=== PATIENT | female | born 1990 | race Caucasian/White ===

== ENCOUNTER 2021-04-01 18:29 | Emergency (ER) | payer OTHER, SELFPAY ==
[2021-04-01 19:48] VITALS: BP 130/81; PULSE 101; RESP 18; TEMP 37; O2SAT 100; BMI 28.5
--- NOTE | 2021-04-01 20:20 | HMH.EDUTC ---
[facility] Clinical Impression: Viral upper respiratory illness Disposition: Home, Self-Care Condition on Discharge: Good Instructions: DI for Viral Upper Respiratory Infection -- Adult Additional Instructions: *Monitor Temp, Over the counter Motrin or Tylenol as directed/as needed Tylenol every 4 hours and Motrin every 6 hours (as long as your family doctor has told you that you can take it) for fever or pain. and straight to ER if unable to lower temp less than 101.0 after medication given *Warm salt water gargles may help to soothe the throat *Throat Lozenges *Warm fluids like tea with honey may help to soothe the throat *Sleep elevated *Humidifier/Vaporizer Your throat swab was sent for culture. Those results are typically sent to your primary care. Be sure to follow up in 2-3 days with your family doctor/primary care physician if no improvement so they can review those result and treat if necessary. If you don?t have a primary care doctor, I recommend you get one but in the mean time, you will have to return to a walk in clinic Follow up IMMEDIATELY for new or worsening symptoms or no Noticeable improvement over the next 48-72 hours. 911 for difficulty breathing or swallowing You were tested for today for COVID19 your test result should be back in the next 24-48 hours, you may call to the [facility] to see if your test results are back in the next 48 hours [phone] [facility] hours are 9am-9pm You was given a handout with instructions for Self Quarantine and Self isolation for while you wait on test results and what to do if they are positive If you are positive the Health Dept will be contacting you also Make sure to take your Vitamins Vit. C Vit D and Zinc if you can take them Referrals: Provider,Referral, [Primary Care Provider] - Forms: Work/School Release Time of Disposition: 20:37 Medical Decision Making - Melo Inquiry Pt receiving controlled substance: No Melo was queried for this patient: No Vital Signs: 04/01/21 19:48 Temperature 98.6 F Temperature Source Oral Pulse Rate [Left Radial] 101 H Respiratory Rate 18 Blood Pressure [Right Arm] 130/81 Blood Pressure Mean [Right Arm] 97 Blood Pressure Source [Right Arm] Automatic Cuff Blood Pressure Position [Right Arm] Sitting 02 Sat by Pulse Oximetry 100 Oxygen Delivery Method Room Air - Lab Data Lab results reviewed: Yes: I reviewed the patient's lab results. Lab Results 04/01/21 20:25: Strep Scn Rapid Clinic Negative Orders (Tests/Meds): ORDERS Category Date Time Status Covid-19 Nasal PCR ([facility]) Routine Lab 04/01/21 19:43 Received Strep Screen Confirmation Stat Micro 04/01/21 20:25 Received [facility] UTC HPI - General Stated complaint: sore throt, cough, v/d, soa Time Seen by Provider: 04/01/21 20:20 Mode of Arrival: Ambulatory Source of Information: Patient Limitations: No Limitations Description of Symptoms (Recalled from Triage Doc. by RN): c/o cough, congestion, soa, fever, vomiting with coughing since Wednesday HEENT Symptoms (Recalled from RN notes): Yes Resp Symptoms (Recalled from RN notes): Yes Skin Symptoms (Recalled from RN notes): No MS Symptoms (Recalled from RN notes): No Functional Status (Recalled from RN notes): na - History of Present Illness Provider Complaint: Patient been having cough, fever, sore throat, body aches, sinus pressure and drainage along with nausea for the last 2-3 days states that symptoms have continued worse Has not tried anything OTC other than tylenol with minimal improvment of fever so she came in to get checked Patient states that she is 26wks OB - Related Data Home Medications Medication Instructions Recorded Confirmed No Known Home Medications 04/01/21 04/01/21 Allergies Allergy/AdvReac Type Severity Reaction Status Date / Time No Known Allergies Allergy Verified 04/01/21 19:51 - Worker's Comp Is this a Worker's Comp case?: No [facility] History - Hepatitis A Scr
[2021-04-01 20:35] LABS: UTC Strep Screen (Rapid) Negative (Negative)
[2021-04-01 20:44] VITALS: BP 130/81; PULSE 101; RESP 18; TEMP 37; O2SAT 100
== END 2021-04-01 20:45 | disposition home or self-care (01) ==
PROVIDERS: Emergency Provider Nurse Practitioner
DX: J06.9 Acute upper respiratory infection, unspecified (principal); Z20.822 Contact with and (suspected) exposure to COVID-19
CPT/HCPCS: 87880; 99202; C9803; G0463; U0003; U0005

== ENCOUNTER 2021-06-07 08:54 | Outpatient (CLI) | payer OTHER, SELFPAY ==
[2021-06-07 09:09] VITALS: BMI 30.8
[2021-06-07 09:24] LABS: Microscopic, Urine URINE MICROSCOPIC (MICROSCOPIC)
[2021-06-07 09:27] LABS: Appearance,Urine CLOUDY (Clear); Bilirubin,Urine Negative (Negative); Blood, Urine 2+ (Negative); Color,Urine YELLOW (Yellow); Glucose,Urine (UA) TRACE (Negative); Ketones,Urine Negative (Negative); Leukocyte Esterase,Urine Negative (Negative); Nitrate,Urine Negative (Negative); Protein,Urine 2+ (Negative); Urobilinogen,Urine 0.2 EU/dl (0.2)
[2021-06-07 09:37] VITALS: BP 108/62; PULSE 110; RESP 20; TEMP 37.1; O2SAT 97; BMI 30.8
[2021-06-07 09:41] LABS: Barbiturates Screen,Urine Negative ng/ml (<200)
[2021-06-07 09:42] LABS: Amphetamine/Metha Screen,Urine Negative ng/ml (<1000); Benzodiazepines Screen,Urine Negative ng/ml (<200)
[2021-06-07 09:43] LABS: Cannabinoid Screen,Urine Negative ng/ml (<50)
[2021-06-07 09:44] LABS: Cocaine Screen,Urine Negative ng/ml (<300); Methadone Screen,Urine Negative ng/ml (<300)
[2021-06-07 09:45] LABS: Coronavirus 19, PCR Not Detected (NotDetected); Influenza A, PCR Not Detected (NotDetected); Influenza B, PCR Not Detected (NotDetected)
[2021-06-07 09:45] LABS: Opiate Screen,Urine Negative ng/ml (<300); Phencyclidine Screen,Urine Negative ng/ml (<25)
[2021-06-07 09:49] LABS: Bacteria,Urine 3+ /lpf; WBC,Urine Occasional #/hpf (0-3)
[2021-06-07 09:52] LABS: Fetal Membrane Rupture (Rapid) Positive (Negative)
--- NOTE | 2021-06-07 11:23 | HMH.HPDC ---
General - General Admission date:: 06/07/21 Discharge date: 06/07/21 *Admission Date: 06/07/21 *Chief complaint: Ruptured membranes, 34 weeks gestational age, grand multiparity *History of present illness: She is a 31-year-old 9 para 8 who is 34 and 1 weeks gestational age. She has been followed in [place] but has only had 3 visits. She did have an ultrasound that confirmed her dates as July 18, 2021. She spontaneously ruptured her membranes at about 730 this morning. Since she is only 34 weeks gestational age we are sending her to by ambulance. She has been accepted in care by Dr. Jhon Zazueta. She has received 1 dose of steroids as well as ampicillin for her GBS prophylaxis. She is not luis. Her cervix was 2 cm dilated and 50% effaced. An ultrasound confirmed that she was in the cephalic presentation. We have recently been informed that there are no beds at and it will be about 6 hours before we can transfer her. We will continue with close observation. She will be transferred by ambulance as soon as a bed is available. [facility] History I have reviewed the patient's past medical history: Yes *Have you ever received a pneumonia vaccine?: No *Have you received a flu vaccine this season?: No Other Surgeries: No: - *Social History Smoking Status: Current every day smoker # Packs/Day (cigarettes): 20 #Yrs smoked (if former smoker): 15 Alcohol Intake: never Substance Use Type: denies use *Occupational Status:: unemployed *Travel in the last 8 weeks: None Family Hx:: No significant family history Para: 8 Review of Systems - Review of Systems Review of systems:: pertinent systems reviewed and negative unless documented below Exam Vital signs and Labs for Last 24 Hours: Temp Pulse Resp BP Pulse Ox 98.7 F 110 H 20 108/62 L 97 06/07/21 09:37 06/07/21 09:37 06/07/21 09:37 06/07/21 09:37 06/07/21 09:37 Laboratory Results - last 24 hr 06/07/21 09:06: Urine Color Yellow, Urine Appearance Cloudy, Urine pH 8.0, Ur Specific Hollis 1.020, Urine Protein 2+, Urine Glucose (UA) Trace, Urine Ketones Negative, Urine Blood 2+, Urine Nitrate Negative, Urine Bilirubin Negative, Urine Urobilinogen 0.2, Ur Leukocyte Esterase Negative, Urine RBC 3-5, Urine WBC Occasional, Ur Squamous Epith Cells 5-10, Urine Bacteria 3+ 06/07/21 09:06: Urine Opiates Screen Negative, Urine Methadone Screen Negative, Ur Barbituates Screen Negative, Ur Phencyclidine Scrn Negative, Ur Amphetamines Screen Negative, U Benzodiazepines Scrn Negative, Urine Cocaine Screen Negative, U Marijuana (THC) Screen Negative 06/07/21 09:22: Membrane Rupture Positive A 06/07/21 09:30: SARS-CoV-2 (PCR) Not detected, Influenza A Untype (PCR) Not detected, Influenza Type B (PCR) Not detected I & O for Last 24 hours: Intake & Output 06/04/21 06/05/21 06/06/21 06/07/21 11:59 11:59 11:59 11:59 Weight 168 lb 6.4 oz - Constitutional no acute distress - *Routine HEENT Exam Head: Present: normocephalic Eye: Present: EOMI, PERRL ENT: Present: mucous membranes moist - *Routine Neck Exam Present: supple, full ROM - *Routine Respiratory Exam Absent: accessory muscle use (good air entry bilaterally), wheezes, crackles - *Routine Cardiovascular Exam Present: RRR. Absent: murmur - *Routine Abdominal Exam Present: soft, normoactive bowel sounds. Absent: tenderness, rebound, guarding, mass - *Routine Rectal Exam Rectal:: deferred - *Routine Genitalia Exam Genitalia:: normal female - *Routine Extremities Exam Present: full ROM. Absent: cyanosis, edema, calf tenderness - *Routine Skin Exam Present: intact (good color) - *Routine Neurological Exam Present: alert, oriented X3 - Routine Psychiatric Exam Present: normal affect - Detailed Rectal Exam Patient deferred: visual exam, digital exam - Detailed Exam Patient deferred: external exam, groin exam, perineal exam [facility]
[2021-06-07 12:16] LABS: Basophils # 0.2 K/mm3 (0-0.2); Basophils % 1.1 % (0.1-2.0); Eosinophils # 0.1 K/mm3 (0.0-0.4); Hematocrit 30.8 % (37.0-47.0); Hemoglobin 9.7 g/dL (12.2-16.2); Lymphocytes # 2.5 K/mm3 (0.7-4.5); Lymphocytes % 17.3 % (10-50); Mean Corpuscular HGB Conc 31.5 g/dL (31.8-35.4); Mean Corpuscular Hemoglobin 27.6 pg (27.0-31.2); Mean Corpuscular Volume 87.7 fl (81-99); Mean Platelet Volume 9.1 fl (7.4-10.4); Monocytes # 0.7 K/mm3 (0.1-1.0); Monocytes % 4.5 % (1.7-9.3); Neutrophils # 11.1 K/mm3 (1.8-7.8); Neutrophils % 76.2 % (37.0-80.0); Platelet Count 236 K/mm3 (142-424); Red Blood Count 3.51 M/mm3 (4.20-5.40); Red Cell Distribution Width 14.5 % (11.5-17.5); White Blood Count 14.6 K/mm3 (4.8-10.8)
== END 2021-06-07 18:16 | disposition short-term general hospital (02) ==
LOC: OBOUT 08:56 → OB 08:57
PROVIDERS: Visit Provider Nurse Practitioner Obstetrics & Gynecology
DX: O42.90 Premature rupture of membranes, unspecified as to length of time between rupture and onset of labor, unspecified weeks of gestation; Z3A.34 34 weeks gestation of pregnancy
CPT/HCPCS: 59025; 80305; 81001; 84112; 85025; 86850; 87086; 94761; 96365; 96367; 96372; C9803; G0283; G0463; J0290; U0003; U0005

== ENCOUNTER 2021-09-15 20:10 | Emergency (ER) | payer OTHER, SELFPAY ==
[2021-09-15 20:21] VITALS: BP 0/0; PULSE 0; RESP 0; TEMP -17.7; TEMP 0; O2SAT 0
== END 2021-09-15 20:29 | disposition left against medical advice (07) ==
LOC: ER 20:23
PROVIDERS: Emergency Provider Emergency Medicine
DX: Z53.21 Procedure and treatment not carried out due to patient leaving prior to being seen by health care provider (principal)
CPT/HCPCS: 99211

== ENCOUNTER → 2021-09-18 11:11 | Outpatient (CLI) | payer OTHER, SELFPAY ==
[2021-09-18 13:20] LABS: HCG,Quantitative 12301 mIU/ml (0-5.42)
== END ==
PROVIDERS: Visit Provider Nurse Practitioner Obstetrics & Gynecology
DX: Z34.90 Encounter for supervision of normal pregnancy, unspecified, unspecified trimester (principal)
CPT/HCPCS: 36415; 84702

== ENCOUNTER → 2021-11-04 08:18 | Outpatient (CLI) | payer OTHER, SELFPAY ==
[2021-11-04 09:13] LABS: Basophils # 0.1 K/mm3 (0-0.2); Basophils % 0.6 % (0.1-2.0); Eosinophils # 0.1 K/mm3 (0.0-0.4); Eosinophils % 0.8 % (0.1-12.0); Hematocrit 36.3 % (37.0-47.0); Hemoglobin 12.2 g/dL (12.2-16.2); Lymphocytes # 2.3 K/mm3 (0.7-4.5); Lymphocytes % 22.3 % (10-50); Mean Corpuscular HGB Conc 33.6 g/dL (31.8-35.4); Mean Corpuscular Hemoglobin 28.5 pg (27.0-31.2); Mean Corpuscular Volume 84.6 fl (81-99); Mean Platelet Volume 8.5 fl (7.4-10.4); Monocytes # 0.4 K/mm3 (0.1-1.0); Monocytes % 4.3 % (1.7-9.3); Neutrophils # 7.2 K/mm3 (1.8-7.8); Neutrophils % 71.9 % (37.0-80.0); Platelet Count 303 K/mm3 (142-424); Red Blood Count 4.29 M/mm3 (4.20-5.40); Red Cell Distribution Width 15.6 % (11.5-17.5); White Blood Count 10.1 K/mm3 (4.8-10.8)
[2021-11-05 10:09] LABS: HIV Screen 4th Generation wRfx Non Reactive (Non Reactive)
[2021-11-05 10:11] LABS: Rubella Antibodies, IgG 2.04 index (Immune >0.99)
[2021-11-05 12:04] LABS: Hepatitis B Surface Antigen Negative (Negative); Hepatitis C Antibody <0.1 s/co ratio (0.0-0.9)
[2021-11-05 12:11] LABS: Rapid Plasma Reagin Ab Titer Non Reactive (NonRea<1:1)
== END ==
PROVIDERS: Visit Provider Obstetrics & Gynecology
DX: Z34.90 Encounter for supervision of normal pregnancy, unspecified, unspecified trimester (principal)
CPT/HCPCS: 36415; 85025; 86592; 86703; 86762; 86850; 87340; 87380; G0432

== ENCOUNTER → 2021-11-05 14:34 | Outpatient (CLI) | payer OTHER, SELFPAY | PROVIDERS: Visit Provider Obstetrics & Gynecology | DX: Z31.430 Encounter of female for testing for genetic disease carrier status for procreative management (principal); Z36.0 Encounter for antenatal screening for chromosomal anomalies; O28.3 Abnormal ultrasonic finding on antenatal screening of mother | CPT/HCPCS: 36415 ==

== ENCOUNTER → 2022-01-07 13:59 | Outpatient (CLI) | payer OTHER, SELFPAY ==
--- NOTE | 2022-01-07 13:59 | US_ITS ---
FINAL REPORT CLINICAL HISTORY: OB complete FINDINGS: There is a single live intrauterine gestation. Presentation is cephalic. Placenta is anterior, grade 1. movement is noted. Heart rate is identified but not recorded. Three-vessel cord with satisfactory umbilical cord insertion. Four-chamber heart is noted. ABDOMEN: Both kidneys are unremarkable. Stomach is unremarkable. SPINE: No anomalies identified. AMNIOTIC FLUID: Appropriate amount. MEASUREMENTS: ULTRASOUND AGE: 21 weeks 1 day. GESTATION AGE: 21 weeks 0 days. ESTIMATED WEIGHT: 392 g GROWTH PERCENTILE: 37 % BPD: 5.07 corresponding to 21 weeks 3 days. OFD: 6.32 corresponding to 21 weeks 1 day. HC: 18.00 cm corresponding to 20 weeks 4 days. AC: 16.13 cm corresponding to 21 weeks 2 days. FL: 3.44 cm corresponding to 20 weeks 6 days. CEREBELLUM: 2.09 cm corresponding to 21 weeks 1 day. HUMERUS: 3.47 cm corresponding to 22 weeks 0 days. HC/AC: 1.12 CI: 80% FL/BPD: 68% FL/AC: 21% IMPRESSION: Single living IUP with an ultrasound age of 21 weeks 1 day. Reviewed, Interpreted and Dictated by Ed Wilde III, MD Transcribed by Kim Beauchamp Authenticated and . [facility]
== END ==
PROVIDERS: PCP Obstetrics & Gynecology; Visit Provider Obstetrics & Gynecology
DX: Z34.90 Encounter for supervision of normal pregnancy, unspecified, unspecified trimester (principal)
CPT/HCPCS: 76811

== ENCOUNTER → 2022-02-24 12:30 | Outpatient (CLI) | payer OTHER, SELFPAY ==
[2022-02-24 12:48] LABS: Basophils # 0.1 K/mm3 (0-0.2); Eosinophils # 0.2 K/mm3 (0.0-0.4); Eosinophils % 1.4 % (0.1-12.0); Hematocrit 33.6 % (37.0-47.0); Hemoglobin 11.2 g/dL (12.2-16.2); Lymphocytes # 2.3 K/mm3 (0.7-4.5); Lymphocytes % 21.3 % (10-50); Mean Corpuscular HGB Conc 33.4 g/dL (31.8-35.4); Mean Corpuscular Hemoglobin 29.7 pg (27.0-31.2); Mean Corpuscular Volume 88.9 fl (81-99); Mean Platelet Volume 8.8 fl (7.4-10.4); Monocytes # 0.4 K/mm3 (0.1-1.0); Monocytes % 3.5 % (1.7-9.3); Neutrophils # 7.8 K/mm3 (1.8-7.8); Neutrophils % 72.8 % (37.0-80.0); Platelet Count 214 K/mm3 (142-424); Red Blood Count 3.77 M/mm3 (4.20-5.40); Red Cell Distribution Width 14.8 % (11.5-17.5); White Blood Count 10.8 K/mm3 (4.8-10.8)
[2022-02-24 13:06] LABS: Glucose,Fasting 123 mg/dl (74-100)
[2022-02-24 14:28] LABS: Glucose 1 Hour 155 mg/dL (74-100)
== END ==
PROVIDERS: Visit Provider Obstetrics & Gynecology
DX: Z34.90 Encounter for supervision of normal pregnancy, unspecified, unspecified trimester (principal)
CPT/HCPCS: 36415; 82951; 85025

== ENCOUNTER → 2022-03-09 08:49 | Outpatient (CLI) | payer OTHER, SELFPAY ==
[2022-03-09 09:36] LABS: Glucose,Fasting 85 mg/dl (74-100)
[2022-03-09 10:56] LABS: Glucose 1 Hour 98 mg/dL (74-100)
[2022-03-09 12:03] LABS: Glucose 2 Hour 97 mg/dL (74-100)
[2022-03-09 12:59] LABS: Glucose 3 Hour 102 mg/dL (74-100)
== END ==
PROVIDERS: Visit Provider Obstetrics & Gynecology
DX: R73.09 Other abnormal glucose (principal)
CPT/HCPCS: 36415; 82951

== ENCOUNTER → 2022-04-10 13:07 | Outpatient (CLI) | payer OTHER, SELFPAY ==
--- NOTE | 2022-04-10 13:07 | US_ITS ---
FINAL REPORT CLINICAL HISTORY: lga FINDINGS: TRANSABDOMINAL ULTRASOUND There is a single live intrauterine gestation. Presentation is cephalic. The cervix is closed and measures 2.3 cm cm. Placenta is anterior and grade 2. Cardiac activity is confirmed at 121 bpm. Fetus is active. CHRISTINA: 16.6 cm cm MEASUREMENTS: GESTATION AGE: 34 weeks 2 days. BREATHIN/2 MOVEMENT: 2/2 TONE: 2/2 FLUID VOLUME: 2/2 BPP SCORE: 8/8 IMPRESSION: Single living IUP with an ultrasound age of 34 weeks 2 days. BPP SCORE: 8/8 CHRISTINA: 16.6 cm Reviewed, Interpreted and Dictated by Rich Mccain MD Transcribed by Mehdi Garcia Authenticated and [facility]
== END ==
PROVIDERS: PCP Obstetrics & Gynecology; Visit Provider Obstetrics & Gynecology
DX: O36.60X0 Maternal care for excessive fetal growth, unspecified trimester, not applicable or unspecified (principal)
CPT/HCPCS: 76819

== ENCOUNTER 2022-04-19 17:50 | Inpatient (IN) | payer OTHER, SELFPAY ==
--- NOTE | 2022-04-19 18:34 | EXP.HP ---
History of Present Illness *Admission Date: 04/19/22 *Reason for visit:: Active labor at 35+4 weeks gestational age. Stillbirth *History of present illness: She is a 32-year-old 10 para 8 aborta 1 who started having contractions this morning. She is 35-1/2 weeks gestational age. She came in and was found to be fully dilated with bulging bag of membranes. She subsequently ruptured her membranes and there was copious brown amniotic fluid. She spontaneously delivered a stillborn female child at 6:15 PM in the evening of April 19, 2022. Apgars were 0 at 105 minutes. The baby's cord was clotted and the skin had peeled from the lower abdomen and chest. This likely indicates that the baby had been for a day or 2. Baby appeared to be normally formed for a 35-week gestational age infant. She has a history of twins in her last and at 20 weeks was discovered that one of the twins was stillborn. She subsequently went on to deliver the second twin at 34 weeks. Unfortunately he of SIDS about 3 weeks of age. She has had good care throughout this . An ultrasound on April 10 showed a normal size infant with normal fluid and biopsy profile of 8 out of 8. [facility] Medical History Infection of tooth Social History Smoking Status: Current every day smoker alcohol intake: never substance use type: marijuana current occupational status: unemployed Travel in the last 8 weeks: None Review of Systems Review of Systems Review of systems:: pertinent systems reviewed and negative unless documented below Meds Home Medications and Allergies Home Medications Medication Instructions Recorded Confirmed Type multivitamin no.47-iron fum 27 1 cap PO DAILY #30 caps 10/01/21 03/26/22 Rx mg-folate no.1 1 mg-dha 300 mg capsule (PNV-DHA) ferrous sulfate 325 mg (65 mg 325 mg PO DAILY #90 tabs 03/04/22 03/26/22 Rx iron) tablet (Iron (ferrous sulfate)) New Prescriptions to Start Prescriptions: Allergies Allergy/AdvReac Type Severity Reaction Status Date / Time No Known Allergies Allergy Verified 04/10/22 11:24 Exam Constitutional Constitutional: no acute distress *Routine HEENT Exam Head: Present normocephalic Eye: Present EOMI and PERRL ENT: Present mucous membranes moist *Routine Neck Exam Neck: Present supple; Absent lymphadenopathy *Routine Respiratory Exam Respiratory: Present CTA bilaterally *Routine Cardiovascular Exam Cardiovascular: Present RRR *Routine Abdominal Exam Abdominal: Present soft and normoactive bowel sounds; Absent tenderness *Routine Rectal Exam Rectal:: deferred *Routine Genitalia Exam Genitalia:: deferred *Routine Extremities Exam Extremities: Absent cyanosis, clubbing or edema *Routine Skin Exam Skin: Present warm; Absent rash *Routine Neurological Exam Neurological: Present alert and oriented X3 Assessment and Plan *Assessment and plan (1) History of delivery: Status: Acute Category: Medical Code(s): Z87.51 - Personal history of pre-term labor (2) Borderline personality disorder: Status: Acute Category: Medical Code(s): F60.3 - Borderline personality disorder (3) Grand multipara: Status: Acute Category: Medical Code(s): Z64.1 - Problems related to multiparity (4) delivery: Status: Acute Category: Medical Code(s): O60.10X0 - labor with delivery, unspecified trimester, not applicable or unspecified (5) History of stillbirth: Status: Acute Category: Medical Code(s): Z87.59 - Personal history of other complications of , childbirth and the puerperium (6) Stillbirth with normal delivery: Status: Acute Category: Medical Code(s): Z37.1 - Single stillbirth Plan She arri
--- NOTE | 2022-04-19 18:42 | EXP.DN ---
Delivery Note Delivery Date:: 04/19/22 Delivery Time:: 18:15 Anesthesia Type: None Was labor medically induced?: No Induction method: none Gestational age (weeks): 35 delivered prior to 39 weeks?: Yes Justification for early elective delivery:: Active Labor Gender: Female at 1 minute: 0 at 5 minutes: 0 AF:: Clear but brown-colored Delivery Procedure:: She is a 32-year-old 10 para 8 aborta 1 who arrived in active labor at 35 and 4 weeks gestational age. She was found to be fully dilated. She subsequently ruptured her membranes and there was copious brown stained fluid. She delivered spontaneously a stillborn female child at 6:15 PM in the evening of April 19, 2022. The baby appeared to be a normal formed female child at the appropriate gestational age. The skin on the baby's belly and abdomen was peeling indicating that was probably a couple of days before the delivery. She received IV oxytocin using gentle traction on the cord and countertraction the fundus the placenta easily delivered intact. It had a normal three-vessel cord. The cord itself was quite dark burgundy in color with clotted blood. There were no perineal or vaginal lacerations. Placental Delivery Description: Spontaneous
--- NOTE | 2022-04-19 19:01 | EXP.DC.SUM ---
General Admission date:: 04/19/22 Discharge date: 04/19/22 HPI HPI HPI: She is a 32-year-old 10 para 8 aborta 1 who started having contractions this morning. She is 35-1/2 weeks gestational age. She came in and was found to be fully dilated with bulging bag of membranes. She subsequently ruptured her membranes and there was copious brown amniotic fluid. She spontaneously delivered a stillborn female child at 6:15 PM in the evening of April 19, 2022. Apgars were 0 at 105 minutes. The baby's cord was clotted and the skin had peeled from the lower abdomen and chest. This likely indicates that the baby had been for a day or 2. Baby appeared to be normally formed for a 35-week gestational age infant. She has a history of twins in her last and at 20 weeks was discovered that one of the twins was stillborn. She subsequently went on to deliver the second twin at 34 weeks. Unfortunately he of SIDS about 3 weeks of age. She has had good care throughout this . An ultrasound on April 10 showed a normal size infant with normal fluid and biopsy profile of 8 out of 8. Hospital Course Hospital Course Hospital Course: She arrived in active labor and was found to be fully dilated at 35 weeks and 4 days. She spontaneously ruptured her membranes and there was brown stained amniotic fluid. She delivered a stillborn female child at 6:15 in the evening of April 19, 2022. She requested to go home shortly after her delivery and we are discharging her home to follow-up with Dr. Goncalves in approximately 1 week's time. She will continue with her vitamins and iron. Her condition on discharge is stable Exam Constitutional Constitutional: no acute distress *Routine Respiratory Exam Respiratory: Present normal respiratory effort *Routine Abdominal Exam Abdominal: Present soft DS: Diagnosis Discharge Diagnosis (1) History of delivery: Status: Acute (2) Borderline personality disorder: Status: Acute (3) Grand multipara: Status: Acute (4) delivery: Status: Acute (5) History of stillbirth: Status: Acute (6) Stillbirth with normal delivery: Status: Acute Meds Home Medications and Allergies Home Medications Medication Instructions Recorded Confirmed Type multivitamin no.47-iron fum 27 1 cap PO DAILY #30 caps 10/01/21 03/26/22 Rx mg-folate no.1 1 mg-dha 300 mg capsule (PNV-DHA) ferrous sulfate 325 mg (65 mg 325 mg PO DAILY #90 tabs 03/04/22 03/26/22 Rx iron) tablet (Iron (ferrous sulfate)) New Prescriptions to Start Prescriptions: Allergies Allergy/AdvReac Type Severity Reaction Status Date / Time No Known Allergies Allergy Verified 04/10/22 11:24 Discharge Plan Disposition Patient Disposition: Home, Self-Care Discharge Order Discharge Orders: Discharge Order (Routine); Ordered 04/19/22 Ordered By: Edis Valdovinos Follow up Plan Prescriptions/Medication Reconciliation: Continued PNV-DHA 27 mg iron-1 mg -300 mg capsule 1 cap PO DAILY Qty: 30 10RF ferrous sulfate [Iron (ferrous sulfate)] 325 mg (65 mg iron) tablet 325 mg PO DAILY Qty: 90 0RF Problem Reconciliation Problems Reviewed?: Yes Patient Discharge Instructions ACTIVITY: No heavy lifting DIET: continue same diet Providers Primary Care Provider: Edis Valdovinos Admit Provider: Edis Valdovinos Attending Provider: Edis Valdovinos
[2022-04-19 19:24] VITALS: BMI 31.8
[2022-04-19 20:23] LABS: Basophils # 0.1 K/mm3 (0-0.2); Basophils % 0.4 % (0.1-2.0); Eosinophils # 0.1 K/mm3 (0.0-0.4); Eosinophils % 0.9 % (0.1-12.0); Hematocrit 34.2 % (37.0-47.0); Hemoglobin 11.2 g/dL (12.2-16.2); Lymphocytes % 20.2 % (10-50); Mean Corpuscular HGB Conc 32.8 g/dL (31.8-35.4); Mean Corpuscular Volume 85.2 fl (81-99); Monocytes # 0.8 K/mm3 (0.1-1.0); Monocytes % 5.6 % (1.7-9.3); Neutrophils # 10.9 K/mm3 (1.8-7.8); Neutrophils % 72.9 % (37.0-80.0); Platelet Count 275 K/mm3 (142-424); Red Blood Count 4.01 M/mm3 (4.20-5.40); Red Cell Distribution Width 14.4 % (11.5-17.5); White Blood Count 14.9 K/mm3 (4.8-10.8)
[2022-04-19 20:24] LABS: Alanine Aminotransferase 19 U/L (12-78); Albumin Level 3.9 g/dl (3.5-5.0); Albumin/Globulin Ratio 1.1 (1.1-1.8); Alkaline Phosphatase 199 U/L (38-126); Anion Gap 17.3 mEq/L (5-15); Aspartate Amino Transferase 29 U/L (14-36); Bilirubin,Total 0.2 mg/dl (0.2-1.3); Blood Urea Nitrogen 7 mg/dl (7-17); Calcium 9.9 mg/dl (8.4-10.2); Carbon Dioxide 23 mmol/L (22.0-30.0); Chloride 99 mmol/L (98-107); Creatinine Clearance Estimated 201 mL/min (50-200); Estimated Glomerular Filt Rate 143 ml/min (>60); GFR (African American) 173 ML/MIN (>60); Globulin 3.5 g/dL (1.3-3.2); Glucose 102 mg/dl (74-100); Potassium 3.3 mmoL/L (3.5-5.1); Sodium 136 mmol/L (136-145); Total Protein,Serum 7.4 g/dl (6.3-8.2)
[2022-04-21 08:19] LABS: Cytomegalovirus (CMV) Ab, IgM 43.4 AU/mL (0.0-29.9)
[2022-04-22 18:06] LABS: Parvovirus B19, IgG 6.3 index (0.0-0.8); Parvovirus B19, IgM 0.2 index (0.0-0.8)
== END 2022-04-19 21:29 | disposition home or self-care (01) | DRG 805 ==
PROVIDERS: Admitting Provider Nurse Practitioner Obstetrics & Gynecology; PCP Nurse Practitioner Obstetrics & Gynecology; Visit Provider Nurse Practitioner Obstetrics & Gynecology
DX: O36.4XX0 Maternal care for intrauterine death, not applicable or unspecified (principal); O60.14X0 Preterm labor third trimester with preterm delivery third trimester, not applicable or unspecified; Z37.1 Single stillbirth; Z3A.35 35 weeks gestation of pregnancy; O99.334 Smoking (tobacco) complicating childbirth
CPT/HCPCS: 59409; 80053; 85025; 86644; 86645; 86747; 87070; 87077; 87186; 87205; 88307

== ENCOUNTER 2022-08-24 14:13 | Emergency (ER) | payer OTHER, SELFPAY ==
--- NOTE | 2022-08-24 14:26 | EXP.UTC ---
Discharge Plan Disposition Patient Disposition: Home, Self-Care Condition: Good Prescriptions Prescriptions: New ibuprofen [IBU] 800 mg tablet 800 mg PO Q8HP PRN (Reason: Moderate Pain) Qty: 30 0RF fluconazole [Diflucan] 150 mg tablet 150 mg PO ONCE Qty: 1 5RF amoxicillin [amoxicillin] 875 mg tablet 875 mg PO Q12H Qty: 20 0RF No Action levonorgestrel-ethinyl estrad [Aviane] 0.1-20 mg-mcg tablet 1 tab PO DAILY ferrous sulfate [Iron (ferrous sulfate)] 325 mg (65 mg iron) tablet 325 mg PO DAILY sertraline 50 mg tablet 50 mg PO DAILY Referrals Follow up/Referrals: Provider,Referral, MD [Primary Care Provider] - See instructions Activity Restrictions/Add. Instructions Additional Instructions/Restrictions: Drink plenty of fluids. Take the ibuprofen for pain or fever. Take the medications as directed. Follow up with your regular doctor. GO TO THE ER FOR ANY WORSENING SYMPTOMS Clinical Impressions Clinical Impression: Abscessed tooth Instructions Patient Instructions: Tooth Abscess, DI for Tooth Abscess Discharge ED Provider: Varun Messina [facility] General Stated complaint: TOOTH ABSE. RIGHT SIDE Time Seen by Provider: 08/24/22 14:26 History of Present Illness Provider Complaint: She states that for the past 2 weeks she has had worsening left upper jaw tooth pain and swelling of the surrounding gums. She denies fever/chills. Related Data Home Medications Medication Instructions Recorded Confirmed ferrous sulfate 325 mg (65 mg 325 mg PO DAILY . 08/24/22 08/24/22 iron) tablet (Iron (ferrous sulfate)) levonorgestrel-ethinyl estradiol 1 tab PO DAILY control 08/24/22 08/24/22 0.1 mg-20 mcg tablet (Aviane) sertraline 50 mg tablet 50 mg PO DAILY Depression 08/24/22 08/24/22 Previous Rx's Medication Instructions Recorded amoxicillin 875 mg tablet 875 mg PO Q12H #20 tabs 08/24/22 fluconazole 150 mg tablet 150 mg PO ONCE #1 tab 08/24/22 (Diflucan) ibuprofen 800 mg tablet (IBU) 800 mg PO Q8HP PRN Moderate Pain 08/24/22 #30 tabs Allergies Allergy/AdvReac Type Severity Reaction Status Date / Time No Known Allergies Allergy Verified 08/24/22 14:54 [facility] Disclaimer: The information contained in this section may have been updated after the patient was seen, as this information can be updated by other users. Medical History Anemia History of delivery History of stillbirth Infection of tooth depression delivery Stillbirth with normal delivery Social History Smoking Status: Current every day smoker alcohol intake: never substance use type: marijuana current occupational status: unemployed Travel in the last 8 weeks: None ROS Obtained: Yes All systems reviewed & no additional complaints except as documented Constitutional Constitutional: Denies chills and Denies fever(s) Eyes Eyes: Denies eye discharge ENT Ears, Nose, Mouth, and Throat: Reports as per HPI, Denies dizziness, Denies otalgia and Denies sore throat Cardiovascular Cardiovascular: Denies chest pain Respiratory Respiratory: Denies shortness of breath, Denies chest congestion, Denies cough, Denies stridor and Denies wheezing Gastrointestinal Gastrointestingal: Denies nausea or vomiting Musculoskeletal Musculoskeletal: Reports system reviewed and no additional complaints, except as documented and Denies arthralgias Integumentary/Breasts Skin/Breast: Denies rash Neurologic Neurologic: Denies dizziness and Denies paresthesias Allergic/Immunologic Allergic/Immunologic: Denies wheezing Physical Exam General General appearance: alert and in no apparent distress Head Head exam: atraumatic, normocephalic and normal inspection Eye Eye exam: Present normal appearance, PERRL and EOMI ENT ENT exam: Present mucous m
[2022-08-24 14:30] VITALS: BP 114/62; PULSE 64; RESP 20; TEMP 37; O2SAT 97; BMI 21.6
[2022-08-24 15:34] VITALS: BP 114/62; PULSE 64; RESP 20; TEMP 37; O2SAT 97
== END 2022-08-24 15:33 | disposition home or self-care (01) ==
PROVIDERS: Emergency Provider Nurse Practitioner Family
DX: R22.0 Localized swelling, mass and lump, head (principal); R68.84 Jaw pain; F17.200 Nicotine dependence, unspecified, uncomplicated
CPT/HCPCS: 99212; 99214; G0463

== ENCOUNTER → 2022-09-14 11:47 | Outpatient (CLI) | payer OTHER, SELFPAY ==
[2022-09-14 13:17] LABS: HCG,Quantitative < 2 mIU/ml (0-5.42)
[2022-09-15 12:12] LABS: Progesterone 0.8 ng/mL (.)
== END ==
PROVIDERS: Visit Provider Obstetrics & Gynecology
DX: N92.6 Irregular menstruation, unspecified (principal); Z32.00 Encounter for pregnancy test, result unknown
CPT/HCPCS: 36415; 84144; 84702

== ENCOUNTER → 2022-11-13 10:33 | Outpatient (CLI) | payer OTHER, SELFPAY ==
[2022-11-14 19:35] LABS: Progesterone 16.8 ng/mL (.)
== END ==
PROVIDERS: Visit Provider Obstetrics & Gynecology
DX: N92.6 Irregular menstruation, unspecified (principal); Z32.00 Encounter for pregnancy test, result unknown
CPT/HCPCS: 36415; 84144; 84702

== ENCOUNTER → 2022-12-21 14:00 | Outpatient (CLI) | payer OTHER, SELFPAY | PROVIDERS: Visit Provider Obstetrics & Gynecology | DX: Z34.91 Encounter for supervision of normal pregnancy, unspecified, first trimester (principal); Z3A.14 14 weeks gestation of pregnancy | CPT/HCPCS: 87086 ==

== ENCOUNTER → 2023-01-27 10:40 | Outpatient (CLI) | payer OTHER, SELFPAY ==
[2023-01-27 11:20] LABS: Basophils % 0.5 % (0.1-2.0); Eosinophils # 0.1 K/mm3 (0.0-0.4); Eosinophils % 1.1 % (0.1-12.0); Hemoglobin 11.6 g/dL (12.2-16.2); Lymphocytes # 1.5 K/mm3 (0.7-4.5); Lymphocytes % 18.5 % (10-50); Mean Corpuscular HGB Conc 33.3 g/dL (31.8-35.4); Mean Corpuscular Hemoglobin 29.2 pg (27.0-31.2); Mean Corpuscular Volume 87.7 fl (81-99); Mean Platelet Volume 9.3 fl (7.4-10.4); Monocytes # 0.5 K/mm3 (0.1-1.0); Monocytes % 6.3 % (1.7-9.3); Neutrophils # 5.9 K/mm3 (1.8-7.8); Neutrophils % 73.6 % (37.0-80.0); Platelet Count 190 K/mm3 (142-424); Red Blood Count 3.99 M/mm3 (4.20-5.40)
[2023-01-28 05:09] LABS: Rubella Antibodies, IgG 1.76 index (Immune >0.99)
[2023-01-28 12:14] LABS: Rapid Plasma Reagin Ab Titer Non Reactive (NonRea<1:1)
[2023-02-08 11:55] LABS: HIV Screen 4th Generation wRfx Non Reactive; Hepatitis B Surface Antigen Negative; Hepatitis C Antibody Non Reactive
== END ==
PROVIDERS: Visit Provider Obstetrics & Gynecology
DX: Z34.92 Encounter for supervision of normal pregnancy, unspecified, second trimester (principal); Z3A.20 20 weeks gestation of pregnancy
CPT/HCPCS: 36415; 85025; 86593; 86703; 86762; 86850; 87340; 87380; G0432

== ENCOUNTER → 2023-02-03 13:59 | Outpatient (CLI) | payer OTHER, SELFPAY ==
[2023-02-05 11:55] LABS: Cytomegalovirus (CMV) Ab, IgM 35.7 AU/mL (0.0-29.9)
[2023-02-05 17:41] LABS: Anti-Cardio Antibody IgM 15 MPL U/mL (0-12); Anti-Cardiolipin Antibody IgG <9 GPL U/mL (0-14); Anticardiolipin Ab,IgA,Qn <9 APL U/mL (0-11)
[2023-02-08 19:24] LABS: Beta-2 Glycoprotein I Ab, IgG <9 (0-20); Beta-2 Glycoprotein I Ab, IgM <9 (0-32)
[2023-02-23 20:09] LABS: Anti-Cardiolipin Antibody IgG <10 GPL (.); Anti-Cardiolipin Antibody IgM 15 MPL (.); Beta-2 Glycoprotein I Ab, IgA <10 SAU (.); Beta-2 Glycoprotein I Ab, IgG <10 SGU (.); Beta-2 Glycoprotein I Ab, IgM <10 SMU (.)
== END ==
PROVIDERS: Visit Provider Obstetrics & Gynecology
DX: Z34.92 Encounter for supervision of normal pregnancy, unspecified, second trimester (principal); Z3A.21 21 weeks gestation of pregnancy; Z87.59 Personal history of other complications of pregnancy, childbirth and the puerperium
CPT/HCPCS: 36415; 85597; 85598; 85610; 85613; 85670; 85730; 86146; 86147; 86644; 86645

== ENCOUNTER → 2023-04-23 09:48 | Outpatient (CLI) | payer OTHER, SELFPAY ==
[2023-04-23 11:16] LABS: Basophils % 0.3 % (0.1-2.0); Eosinophils # 0.1 K/mm3 (0.0-0.4); Hemoglobin 10.6 g/dL (12.2-16.2); Lymphocytes # 2.6 K/mm3 (0.7-4.5); Lymphocytes % 22.8 % (10-50); Mean Corpuscular HGB Conc 33.2 g/dL (31.8-35.4); Mean Corpuscular Hemoglobin 29.1 pg (27.0-31.2); Mean Corpuscular Volume 87.7 fl (81-99); Mean Platelet Volume 8.9 fl (7.4-10.4); Monocytes # 0.5 K/mm3 (0.1-1.0); Neutrophils # 8.1 K/mm3 (1.8-7.8); Neutrophils % 71.9 % (37.0-80.0); Platelet Count 232 K/mm3 (142-424); Red Blood Count 3.65 M/mm3 (4.20-5.40); Red Cell Distribution Width 13.8 % (11.5-17.5); White Blood Count 11.3 K/mm3 (4.8-10.8)
[2023-04-23 12:00] LABS: Activated Partial Thrombo Time 28.4 seconds (22.8-30.6); INR 0.95 (0.9-1.1); Prothrombin Time 10.3 seconds (10.1-12.5)
[2023-04-23 12:12] LABS: Alanine Aminotransferase 21 U/L (12-78); Albumin Level 3.4 g/dl (3.5-5.0); Albumin/Globulin Ratio 1.2 (1.1-1.8); Alkaline Phosphatase 124 U/L (38-126); Anion Gap 12.4 mEq/L (5-15); Aspartate Amino Transferase 25 U/L (14-36); Bilirubin,Total 0.3 mg/dl (0.2-1.3); Blood Urea Nitrogen 6 mg/dl (7-17); Calcium 8.3 mg/dl (8.4-10.2); Carbon Dioxide 22 mmol/L (22.0-30.0); Chloride 105 mmol/L (98-107); Estimated Glomerular Filt Rate 142 ml/min (>60); GFR (African American) 172 ML/MIN (>60); Globulin 2.9 g/dL (1.3-3.2); Glucose 92 mg/dl (74-100); Potassium 3.4 mmoL/L (3.5-5.1); Sodium 136 mmol/L (136-145); Total Protein,Serum 6.3 g/dl (6.3-8.2)
[2023-04-23 13:10] LABS: Hemoglobin A1C 5.1 % (4.0-6.0)
[2023-04-23 14:46] LABS: Glucose 1 Hour 97 mg/dL (74-100)
== END ==
PROVIDERS: Visit Provider Obstetrics & Gynecology
DX: Z34.93 Encounter for supervision of normal pregnancy, unspecified, third trimester (principal); Z3A.32 32 weeks gestation of pregnancy; Z87.51 Personal history of pre-term labor; Z87.59 Personal history of other complications of pregnancy, childbirth and the puerperium
CPT/HCPCS: 36415; 80053; 82951; 83036; 85025; 85610; 85730

== ENCOUNTER 2023-04-28 21:56 | Outpatient (CLI) | payer OTHER, SELFPAY ==
[2023-04-28 22:00] VITALS: BMI 26.8
[2023-04-28 22:33] VITALS: BP 121/65; PULSE 89; RESP 18; TEMP 36.7; O2SAT 99; BMI 26.8
--- NOTE | 2023-04-28 22:33 | US_ITS ---
PROCEDURE INFORMATION: Exam: US Biophysical Profile Without Non-Stress Test Exam date and time: 04/28/2023 11:02 PM Age: 33 years old Clinical indication: Pain; Pain indication: Contractions; ; Additional info: Contractions, HX of stillbirth TECHNIQUE: Imaging protocol: US biophysical profile without non-stress testing. COMPARISON: US OB /MATERNAL DETAIL 01/07/2022 2:03 PM FINDINGS: heart rate: heart rate is 144 bpm. presentation: Fetus is in cephalic presentation. Placenta: There is a posterior placenta without evidence for previa. Amniotic fluid index: Amniotic fluid index is 16.7 cm. BIOPHYSICAL PROFILE: breathing movement (BPP): 2 out of 2. body movement (BPP): 2 out of 2. tone (BPP): 2 out of 2. Amniotic fluid (BPP): 2 out of 2. BIOMETRY: Gestational age (AUA): Estimated gestational age is 33 weeks five days. Estimated due date (AUA): Estimated date of delivery is June 11, 2023. Estimated weight: Estimated weight is 2234 g. Head circumference (HC): Head circumference 30 cm. Biparietal diameter (BPD): Biparietal diameter is 8.4 cm. Abdominal circumference (AC): Abdominal circumference is 29.7 cm. Femur length (FL): Femur length is 6.6 cm. Umbilical cord vessel number: There is a three-vessel cord. MATERNAL ANATOMY: Cervix: Cervix is intact measuring 2.6 cm. IMPRESSION: Single intrauterine gestation with estimated gestational age of 33 weeks five days. Normal biophysical profile.
[2023-04-29 02:36] LABS: Appearance,Urine CLEAR (Clear); Bilirubin,Urine Negative (Negative); Blood, Urine Negative (Negative); Color,Urine YELLOW (Yellow); Glucose,Urine (UA) Negative (Negative); Ketones,Urine Negative (Negative); Leukocyte Esterase,Urine Negative (Negative); Microscopic, Urine URINE MICROSCOPIC (MICROSCOPIC); Nitrate,Urine Negative (Negative); Protein,Urine Negative (Negative); Urobilinogen,Urine 0.2 EU/dl (0.2)
[2023-04-29 03:17] LABS: Amphetamine/Metha Screen,Urine Positive ng/ml (<1000); Barbiturates Screen,Urine Negative ng/ml (<200); Benzodiazepines Screen,Urine Negative ng/ml (<200); Cannabinoid Screen,Urine Negative ng/ml (<50); Cocaine Screen,Urine Negative ng/ml (<300); Methadone Screen,Urine Negative ng/ml (<300); Opiate Screen,Urine Negative ng/ml (<300); Phencyclidine Screen,Urine Negative ng/ml (<25)
[2023-04-29 03:22] LABS: Mucus,Urine 1+ /lpf
[2023-04-29 03:23] LABS: Bacteria,Urine Trace /lpf; Calcium Oxalate Crystals,Urine 1+ /lpf
[2023-05-04 00:08] LABS: Amphetamine Positive (.); Amphetamine (GC/MS) >3000 ng/mL (Cutoff=500); Amphetamines Positive (.); Methamphetamine Negative (Cutoff=500)
--- NOTE | 2023-05-14 10:12 | PC.NURSE ---
Pt. scheduled for NST on 05/13/2023, Pt. did not show for appointment. Dr. Goncalves notified and v/u.
== END 2023-04-29 01:02 | disposition home or self-care (01) ==
LOC: OBOUT 21:57 → OB 21:58
PROVIDERS: Visit Provider Obstetrics & Gynecology
DX: O47.03 False labor before 37 completed weeks of gestation, third trimester (principal); Z3A.33 33 weeks gestation of pregnancy; R10.2 Pelvic and perineal pain
CPT/HCPCS: 59025; 76811; 76819; 76820; 80305; 80324; 81001; 96365; G0463

== ENCOUNTER 2023-06-03 17:12 | Outpatient (CLI) | payer OTHER, SELFPAY | END 2023-06-03 23:59 | LOC: LAB.DROPOF 17:14 | PROVIDERS: PCP Obstetrics & Gynecology; Visit Provider Obstetrics & Gynecology | DX: Z34.90 Encounter for supervision of normal pregnancy, unspecified, unspecified trimester (principal); Z87.51 Personal history of pre-term labor; Z87.59 Personal history of other complications of pregnancy, childbirth and the puerperium | CPT/HCPCS: 86403 ==

== ENCOUNTER 2023-06-06 20:43 | Inpatient (IN) | payer OTHER, SELFPAY ==
[2023-06-06 20:58] VITALS: BMI 28.3
[2023-06-06 22:08] LABS: Microscopic, Urine URINE MICROSCOPIC (MICROSCOPIC)
[2023-06-06 22:09] LABS: Appearance,Urine CLEAR (Clear); Bilirubin,Urine Negative (Negative); Blood, Urine TRACE-I (Negative); Color,Urine YELLOW (Yellow); Glucose,Urine (UA) Negative (Negative); Ketones,Urine Negative (Negative); Leukocyte Esterase,Urine TRACE (Negative); Nitrate,Urine Negative (Negative); PH,Urine 6.5 (5.0-8.5); Protein,Urine Negative (Negative); Urobilinogen,Urine 0.2 EU/dl (0.2)
[2023-06-06 22:15] LABS: Basophils # 0.1 K/mm3 (0-0.2); Basophils % 0.6 % (0.1-2.0); Eosinophils # 0.1 K/mm3 (0.0-0.4); Eosinophils % 0.9 % (0.1-12.0); Hematocrit 32.9 % (37.0-47.0); Hemoglobin 11.3 g/dL (12.2-16.2); Lymphocytes # 3.6 K/mm3 (0.7-4.5); Mean Corpuscular HGB Conc 34.3 g/dL (31.8-35.4); Mean Corpuscular Hemoglobin 29.3 pg (27.0-31.2); Mean Corpuscular Volume 85.5 fl (81-99); Mean Platelet Volume 9.4 fl (7.4-10.4); Monocytes # 0.9 K/mm3 (0.1-1.0); Monocytes % 6.4 % (1.7-9.3); Neutrophils # 9.5 K/mm3 (1.8-7.8); Neutrophils % 67.1 % (37.0-80.0); Platelet Count 272 K/mm3 (142-424); Red Blood Count 3.85 M/mm3 (4.20-5.40); Red Cell Distribution Width 14.7 % (11.5-17.5); White Blood Count 14.2 K/mm3 (4.8-10.8)
[2023-06-06 22:21] LABS: Amphetamine/Metha Screen,Urine Negative ng/ml (<1000); Bacteria,Urine 1+ /lpf; RBC,Urine Occasional #/hpf (0-3); WBC,Urine Occasional #/hpf (0-3)
[2023-06-06 22:22] LABS: Barbiturates Screen,Urine Negative ng/ml (<200); Benzodiazepines Screen,Urine Negative ng/ml (<200)
[2023-06-06 22:23] LABS: Cannabinoid Screen,Urine Negative ng/ml (<50)
[2023-06-06 22:24] LABS: Cocaine Screen,Urine Negative ng/ml (<300); Methadone Screen,Urine Negative ng/ml (<300)
[2023-06-06 22:25] LABS: Opiate Screen,Urine Negative ng/ml (<300)
[2023-06-06 22:26] LABS: Phencyclidine Screen,Urine Negative ng/ml (<25)
[2023-06-06 22:32] VITALS: BP 107/60; PULSE 82; RESP 19; TEMP 36.9; O2SAT 99; BMI 28.3
[2023-06-07] MEDS: LACTATED RINGERS 1000ML 1,000 ML 250 ML IV (04:46)
[2023-06-07] MEDS: DEXTROSE 5%-LACTATED RINGERS 1,000 ML 125 ML IV (04:46)
[2023-06-07] MEDS: AMPICILLIN SODIUM 2 GM in 0.9 % SODIUM CHLORIDE 100 ML IV (04:47)
[2023-06-07] MEDS: OXYTOCIN/RINGERS LACTATE 30 UNITS/500 ML BAG IV (05:05)
--- NOTE | 2023-06-07 07:36 | P.CONPHA_ITS ---
Pharmacy Intervention Comments: MEDICATION RECONCILIATION COMPLETED ON PATIENT USING EXTERNAL FILL HISTORY FROM PHARMACY, LIST FROM ED MANAGER OFFICE, AND LAURA REPORT. -COLLEEN VILLAR, PHARMD
--- NOTE | 2023-06-07 07:36 | HMH.PHAINT1 ---
Pharmacy Intervention Comments: MEDICATION RECONCILIATION COMPLETED ON PATIENT USING EXTERNAL FILL HISTORY FROM PHARMACY, LIST FROM REGULATORY SCIENTIST OFFICE, AND LAURA REPORT. -COLLEEN VILLAR, PHARMD
--- NOTE | 2023-06-07 08:58 | EXP.OB.APHP ---
OB - H&P: HPI Antepartum History of Present Illness Chief complaint: Scheduled induction of labor History of present illness: Ms Sharon Swift is a 33 yo at 38w5d who presents to [facility] Labor and Delivery for scheduled induction of labor secondary to history of stillbirth at 35 weeks. She has had limited care the last 4 weeks. She was taking Lovenox then heparin for history of stillbirth at 35 weeks. Her last dose of Heparin was 06/02/23. She admits to some pelvic pressure, mild contractions. Baby is active. History of Present Criteria for establishing EDC:: based on 1st trimester US only care: limited care (limited care in the third trimester) Ultrasounds: normal mid trimester US Obstetrical complications: none Medical complications: psychiatric Labs Blood type: O (+) positive Rubella: immune RPR/VDRL: nonreactive GBS status: unknown (pending) HBsAG: negative [facility] Disclaimer: The information contained in this section may have been updated after the patient was seen, as this information can be updated by other users. Medical History (Updated 06/07/23 @ 11:29 by Tena Goncalves DO) 38 weeks gestation of Anemia Antiphospholipid antibody syndrome Breech presentation of fetus CMV (cytomegalovirus infection) status positive History of delivery History of stillbirth Marijuana use during Screening for genetic disease carrier status Tobacco use affecting , antepartum Surgical History No significant past surgical history Family History Other No significant family history Social History (Updated 06/06/23 @ 22:36 by Amena Figueroa RN) Smoking Status: Current every day smoker tobacco type: cigarettes packs per day: 1 and e-cigarettes years smoked: 22 alcohol intake: never substance use type: denies use, marijuana and amphetamines current occupational status: employed Travel in the last 8 weeks: None do you feel safe at home: Yes victim of physical abuse: No victim of emotional abuse: No victim of sexual abuse: No Review of Systems Review of Systems Review of systems:: pertinent systems reviewed and negative unless documented below Meds Home Medications and Allergies Home Medications Medication Instructions Recorded Confirmed Type aspirin 81 mg tablet,delayed 81 mg PO DAILY 04/01/23 06/06/23 History release insulin syringe,safetyneedle 0.5 #100 ea 04/27/23 06/03/23 Rx mL 31 gauge x 15/64 (BD SafetyGlide Insulin Syringe) insulin syringe-needle U-100 1 mL #10 ea 05/10/23 06/03/23 History 31 gauge x 5/16 (BD Insulin Syringe Ultra-Fine) vits no.126-ferrous fum 1 tab PO DAILY #90 tabs 05/11/23 06/06/23 Rx 28 mg iron-folic acid 800 mcg tablet (Classic ) heparin (porcine) 10,000 unit/mL 10,000 unit SQ Q12H #25 mL 05/21/23 06/06/23 Rx injection solution ferrous sulfate 325 mg (65 mg 325 mg PO DAILY Supplement 06/06/23 06/06/23 History iron) tablet (FeroSul) fluoxetine 40 mg capsule (Prozac) 40 mg PO DAILY Mood 06/07/23 06/06/23 History ondansetron 4 mg disintegrating 4 mg PO Q8HP PRN nausea and 06/07/23 06/07/23 History tablet vomiting New Prescriptions to Start Prescriptions: Allergies Allergy/AdvReac Type Severity Reaction Status Date / Time No Known Allergies Allergy Verified 06/03/23 10:08 OB - H&P: Exam Physical Exam Vital signs: Temp Pulse Resp BP Pulse Ox O2 Del Method 98.5 F 82 19 107/60 L 99 Room Air 06/06/23 22:32 06/06/23 22:32 06/06/23 22:32 06/06/23 22:32 06/06/23 22:32 06/06/23 22:32 Constitutional no acute distress and cooperative Routine HEENT Exam Head: Present normocephalic and atraumatic Eye: Absent scleral injection ENT: Present mucous membranes moist Routine Neck Exam Present full ROM Routine Respiratory Exam Present CTA bilaterally and normal respiratory effort Routine Cardiovascular Exam Present RRR Routine Abdominal Exam Present soft (Gravid); Absent tenderness Routine Rectal Exam Patient deferred: visual exam Routine Exam External: Present normal urethra appearance; Absent erythema, tenderness, lesions, lacerations or discharge Routine Extremities Exam Present full ROM; Absent edema or calf tenderness Detailed Labor and Delivery Exam Dilation (cm): 3 Effacement (%): 50 Cervix position: mid station: -2 Consistency: soft Membranes: artificially ruptured Amniotic fluid: thin meconium Baseline heart rate: 150 monitor accelerations: Present monitor decelerations: None skilled nursing variability: Moderate (11-25) Contraction frequency (min): 3 OB - Results Labs Labs: Short CBC 06/06/23 Range/Units 21:40 WBC 14.2 H (4.8-10.8) K/mm3 Hgb 11.3 L (12.2-16.2) g/dL Hct 32.9 L (37.0-47.0) % Plt Count 272 (142-424) K/mm3 Urine 06/06/23 Range/Units 21:10 Urine Color Yellow (Yellow) Urine Appearance Clear (Clear) Urine pH 6.5 (5.0-8.5) Ur Specific [place] 1.020 (1.005-1.030) Urine Protein Negative (Negative) Urine Glucose (UA) Negative (Negative) OB - A/P Antepartum (1) 38 weeks gestation of : Status: Acute (2) Grand multipara: Status: Acute (3) Tobacco use affecting , antepartum: Status: Acute (4) CMV (cytomegalovirus infection) status positive: Status: Acute (5) History of delivery: Status: Acute (6) History of stillbirth: Status: Acute (7) Borderline personality disorder: Status: Acute (8) ADHD: Status: Acute (9) Positive urine drug screen: Problem details: THC & Amphetamines Status: Acute (10) Marijuana use during : Status: Acute (11) Antiphospholipid antibody syndrome: Status: Acute Additional Plan Planning to breastfeed?: Yes Plan: induction Additional Information:: Admit to [facility] L&D for induction of labor Induction of labor with Pitocin protocol GBS pending. Ampicillin for GBS prophylaxis Close monitoring Anticipate
[2023-06-07] MEDS: AMPICILLIN SODIUM 1 GM in 0.9 % SODIUM CHLORIDE 50 ML IV (09:21)
--- NOTE | 2023-06-07 10:46 | EXP.ANES.CKL ---
[facility] Disclaimer: The information contained in this section may have been updated after the patient was seen, as this information can be updated by other users. Medical History (Updated 06/06/23 @ 21:53 by Amena Figueroa RN) Anemia Antiphospholipid antibody syndrome Breech presentation of fetus CMV (cytomegalovirus infection) status positive History of delivery History of stillbirth Screening for genetic disease carrier status Tobacco use affecting , antepartum Surgical History No significant past surgical history Family History Other No significant family history Social History (Updated 06/06/23 @ 22:36 by Amena Figueroa RN) Smoking Status: Current every day smoker tobacco type: cigarettes packs per day: 1 and e-cigarettes years smoked: 22 alcohol intake: never substance use type: denies use, marijuana and amphetamines current occupational status: employed Travel in the last 8 weeks: None do you feel safe at home: Yes victim of physical abuse: No victim of emotional abuse: No victim of sexual abuse: No [facility] Anesthesia Checklist Patient Identification Patient Identification: Arm Band Structural Data Admitted From: Inpatient Planned Operative Procedure/s: Labor Epidural Consent for Planned Operative Procedure(s) Verified: Yes Verified Documents: Surgical Consent and History and Physical Additional verifications Anesthesia Reactions: No Airway Assessment Mallampati Score:: Class II C-Spine Mobility Assessed: Yes TMJ Mobility Assessed: Yes Dentition: Good Dentition Neurological Assessment Level of Consciousness: Awake and Alert Anesthesia Plan Anesthesia Risk discussed: Yes Anesthesia Plan: Verified ASA Class: II Anesthesia Type: Epidural
[2023-06-07] MEDS: LACTATED RINGERS 1000ML 1,000 ML 999 ML IV (11:00)
[2023-06-07] MEDS: ePHEDrine SULF 50MG/ML VIAL 10 MG IV (11:35)
[2023-06-07] MEDS: OXYTOCIN/RINGERS LACTATE 30 UNITS/500 ML BAG 40 UNITS IV (12:20)
--- NOTE | 2023-06-07 12:30 | EXP.DN ---
Delivery Note Delivery Date:: 06/07/23 Delivery Time:: 12:14 Anesthesia Type: Epidural Was labor medically induced?: Yes Induction method: per pitocin protocol Gestational age (weeks): 38 delivered prior to 39 weeks?: Yes Justification for early elective delivery:: Other (History of stillbirth at 35 weeks) Gender: Male at 1 minute: 7 at 5 minutes: 9 Delivery Procedure:: Mom complete with epidural. Pushed for approximately one contractions. Head delivered spontaneously over intact perineum in IVETTE position. No nuchal cord. Anterior shoulder delivered with gentle downward pressure. Posterior shoulder and remainder of body delivered spontaneously. Baby placed on maternal abdomen, mouth and nares bulb suctioned, warmed/dried and stimulated. Delayed cord clamping was performed for 45 seconds. Cord was clamped and cut by father of baby. Cord blood was obtained. Placenta delivered spontaneously and intact. Placenta will be sent to pathology for review No lacerations. Mom and baby were skin to skin and doing well after delivery. Live male baby (baby's name is Kelly) APGARs 7 (1 min), 9 (5 min) EBL 75 mL Placental Delivery Description: Spontaneous
[2023-06-07 17:30] VITALS: BP 105/58; PULSE 98; RESP 16; TEMP 36.4; O2SAT 97
[2023-06-07] MEDS: IBUPROFEN 400 MG TABLET 800 MG PO (20:46)
[2023-06-07] MEDS: ACETAMINOPHEN 500MG TAB 1000 MG PO (20:46)
[2023-06-08] MEDS: LANOLIN CREAM 40GM TP (00:03)
[2023-06-08] MEDS: IBUPROFEN 400 MG TABLET 800 MG PO (05:23)
[2023-06-08 06:31] LABS: Basophils # 0.1 K/mm3 (0-0.2); Basophils % 0.5 % (0.1-2.0); Eosinophils # 0.4 K/mm3 (0.0-0.4); Eosinophils % 1.9 % (0.1-12.0); Hematocrit 31.8 % (37.0-47.0); Hemoglobin 10.7 g/dL (12.2-16.2); Lymphocytes # 4.8 K/mm3 (0.7-4.5); Lymphocytes % 25.6 % (10-50); Mean Corpuscular HGB Conc 33.7 g/dL (31.8-35.4); Mean Corpuscular Hemoglobin 29.2 pg (27.0-31.2); Mean Corpuscular Volume 86.6 fl (81-99); Monocytes # 1.1 K/mm3 (0.1-1.0); Neutrophils # 12.3 K/mm3 (1.8-7.8); Neutrophils % 66.1 % (37.0-80.0); Platelet Count 267 K/mm3 (142-424); Red Blood Count 3.67 M/mm3 (4.20-5.40); Red Cell Distribution Width 14.6 % (11.5-17.5); White Blood Count 18.6 K/mm3 (4.8-10.8)
[2023-06-08 06:44] LABS: MANUAL DIFFERENTIAL MANUAL DIFFERENTIAL (MANUAL DIFF)
[2023-06-08 08:21] LABS: Lymphocytes % 33 % (10-50); Monocytes % 2 % (2-9); Neutrophils % 65 % (42-76); Platelet Estimate Normal; RBC Morphology Normal; Total Cells Counted 100
[2023-06-08 08:58] VITALS: BP 114/63; PULSE 79; RESP 16; TEMP 36.7; O2SAT 98
--- NOTE | 2023-06-08 10:36 | EXP.DC.SUM ---
General Admission date:: 06/06/23 Discharge date: 06/08/23 HPI HPI HPI: PPD # 1 s/p Sitting comfortably in the chair this morning. Pain controlled. Breast feeding. Appropriate lochia. Voiding without difficulty and passing flatus. Tolerating regular diet. No fever/chills, chest pain or shortness of breath. No headaches, vision changes, lightheadedness/dizziness. No lower extremity edema. Ambulating well ad fannie. Hospital Course Hospital Course Hospital Course: Ms Sharon Swift is a 33 yo at 38w5d who presented to [facility] Labor and Delivery for scheduled induction of labor secondary to history of stillbirth at 35 weeks. She has had limited care the last 4 weeks. She was taking Lovenox then heparin for antiphospholipid antibody sydnrome and history of stillbirth at 35 weeks. Her last dose of Heparin was 06/02/23. She admits to some pelvic pressure, mild contractions. Baby is active. GBS unknown. She received GBS prophylaxis. She underwent induction of labor with Pitocin. She had a normal spontaneous vaginal delivery on 06/07/23 at 1214. She delivered a live male baby, Kelly, weighing 8 lb 9 oz. APGARs 7 (1 min), 9 (5 min). EBL 75 mL. She did well . Pain controlled. Breast feeding. Appropriate lochia. Voiding without difficulty and passing flatus. Tolerating regular diet. No fever/chills, chest pain or shortness of breath. No headaches, vision changes, lightheadedness/dizziness. Vital signs stable, afebrile. Heart regular rate and rhythm. Lungs clear to auscultation. Abdomen soft, nontender. No lower extremity edema. Ambulating well ad fannie. Normal hospital course. She was discharged home on PPD # 1 with instructions to follow-up in the office in 2 weeks or sooner if needed. 06/06/23 Hgb/Hct: 11.3/32.9 06/08/23 Hgb/Hct: 10.7/31.8 Exam Data for Last 24 hours Vital signs and Labs for Last 24 Hours: Temp Pulse Resp BP Pulse Ox O2 Del Method 98.0 F 79 16 114/63 98 Room Air 06/08/23 08:58 06/08/23 08:58 06/08/23 08:58 06/08/23 08:58 06/08/23 08:58 06/08/23 08:58 Laboratory Results - last 24 hr 06/08/23 05:14: WBC 18.6 H D, RBC 3.67 L, Hgb 10.7 L, Hct 31.8 L, MCV 86.6, MCH 29.2, MCHC 33.7, RDW 14.6, Plt Count 267, MPV 10.0, Neut % (Auto) 66.1, Lymph % (Auto) 25.6, Stevens % (Auto) 6.0, Eos % (Auto) 1.9, Baso % (Auto) 0.5, Neut # (Auto) 12.3 H, Lymph # (Auto) 4.8 H, Stevens # (Auto) 1.1 H, Eos # (Auto) 0.4, Baso # (Auto) 0.1, Total Counted 100, Neutrophils % (Manual) 65, Lymphocytes % (Manual) 33, Monocytes % (Manual) 2, Platelet Estimate Normal, RBC Morphology Normal I & O for Last 24 hours: Intake & Output 06/05/23 06/06/23 06/07/23 06/08/23 23:59 23:59 23:59 23:59 Weight 170 lb Constitutional Constitutional: no acute distress and cooperative *Routine HEENT Exam Head: Present normocephalic and atraumatic Eye: Absent conjunctivae pink ENT: Present mucous membranes moist *Routine Neck Exam Neck: Present full ROM *Routine Respiratory Exam Respiratory: Present CTA bilaterally and normal respiratory effort *Routine Cardiovascular Exam Cardiovascular: Present RRR *Routine Abdominal Exam Abdominal: Present soft; Absent tenderness Comments: Uterine fundus firm and below umbilicus *Routine Rectal Exam Patient deferred: visual exam *Routine Exam Patient deferred: external exam *Routine Extremities Exam Extremities: Present full ROM; Absent edema or calf tenderness *Routine Neurological Exam Neurological: Present alert, oriented X3 and moving all extremities Routine Psychiatric Exam Psychiatric: Present normal affect and cooperative Results Data Completed and Pending Labs on day of discharge: Labs from last 24 hours 06/08/23 05:14 WBC 18.6 H D RBC 3.67 L Hgb 10.7 L Hct 31.8 L MCV 86.6 MCH 29.2 MCHC 33.7 RDW 14.6 Plt Count 267 MPV 10.0 Neut % (Auto) 66.1 Lymph % (Auto) 25.6 Stevens % (Auto) 6.0 Eos % (Auto) 1.9 Baso % (Auto) 0.5 Neut # (Auto) 12.3 H Lymph # (Auto) 4.8 H Stevens # (Auto) 1.1 H Eos # (Auto) 0.4 Baso # (Auto) 0.1 Total Counted 100 Neutrophils % (Manual) 65 Lymphocytes % (Manual) 33 Monocytes % (Manual) 2 Platelet Estimate Normal RBC Morphology Normal DS: Diagnosis Discharge Diagnosis (1) 38 weeks gestation of : Status: Acute Code(s): Z3A.38 - 38 weeks gestation of (2) Grand multipara: Status: Acute Code(s): Z64.1 - Problems related to multiparity (3) Tobacco use affecting , antepartum: Status: Acute Code(s): O99.330 - Smoking (tobacco) complicating , unspecified trimester (4) CMV (cytomegalovirus infection) status positive: Status: Acute Code(s): B25.9 - Cytomegaloviral disease, unspecified Qualifiers: Cytomegaloviral disease type: unspecified Qualified Code(s): B25.9 - Cytomegaloviral disease, unspecified (5) History of delivery: Status: Acute Code(s): Z87.51 - Personal history of pre-term labor (6) History of stillbirth: Status: Acute Code(s): Z87.59 - Personal history of other complications of , childbirth and the puerperium (7) Borderline personality disorder: Status: Acute Code(s): F60.3 - Borderline personality disorder (8) ADHD: Status: Acute Code(s): F90.9 - Attention-deficit hyperactivity disorder, unspecified type Qualifiers: Attention deficit-hyperactivity disorder type: unspecified Qualified Code(s): F90.9 - Attention-deficit hyperactivity disorder, unspecified type (9) Positive urine drug screen: Status: Acute Code(s): R82.5 - Elevated urine levels of drugs, medicaments and biological substances Problem details: THC & Amphetamines (10) Marijuana use during : Status: Acute Code(s): O99.320 - Drug use complicating , unspecified trimester; F12.90 - Cannabis use, unspecified, uncomplicated (11) Antiphospholipid antibody syndrome: Status: Acute Code(s): D68.61 - Antiphospholipid syndrome (12) Acute blood loss anemia: Status: Acute Code(s): D62 - Acute posthemorrhagic anemia Meds Home Medications and Allergies Home Medications Medication Instructions Recorded Confirmed Type insulin syringe,safetyneedle 0.5 #100 ea 04/27/23 06/03/23 Rx mL 31 gauge x 15/64 (BD SafetyGlide Insulin Syringe) insulin syringe-needle U-100 1 mL #10 ea 05/10/23 06/03/23 History 31 gauge x 5/16 (BD Insulin Syringe Ultra-Fine) vits no.126-ferrous fum 1 tab PO DAILY #90 tabs 05/11/23 06/06/23 Rx 28 mg iron-folic acid 800 mcg tablet (Classic ) ferrous sulfate 325 mg (65 mg 325 mg PO DAILY Supplement 06/06/23 06/06/23 History iron) tablet (FeroSul) fluoxetine 40 mg capsule (Prozac) 40 mg PO DAILY Mood 06/07/23 06/06/23 History ondansetron 4 mg disintegrating 4 mg PO Q8HP PRN nausea and 06/07/23 06/07/23 History tablet vomiting ibuprofen 800 mg tablet 800 mg PO Q8H PRN pain #20 tabs 06/08/23 Rx New Prescriptions to Start Prescriptions: Tena Bowens Allergies Allergy/AdvReac Type Severity Reaction Status Date / Time No Known Allergies Allergy Verified 06/03/23 10:08 Discharge Plan Disposition Patient Disposition: Home, Self-Care Condition: Good Discharge Order Discharge Orders: Discharge Order (Routine); Ordered 06/08/23 Ordered By: Tena Goncalves Follow up Plan Follow up with: Tena Goncalves DO [Staff Physician] - 2 weeks Prescriptions/Medication Reconciliation: New ibuprofen 800 mg tablet 800 mg PO Q8H PRN (Reason: pain) Qty: 20 0RF Continued Classic 28 mg iron- 800 mcg tablet 1 tab PO DAILY Qty: 90 2RF ferrous sulfate [FeroSul] 325 mg (65 mg iron) tablet 325 mg PO DAILY fluoxetine [Prozac] 40 mg capsule 40 mg PO DAILY ondansetron 4 mg tablet,disintegrating 4 mg PO Q8HP PRN (Reason: nausea and vomiting) Discontinued aspirin 81 mg tablet,delayed release (DR/EC) 81 mg PO DAILY heparin (porcine) 10,000 unit/mL solution 10,000 unit SQ Q12H Qty: 25 0RF No Action (DME) insulin syringe-needle U-100 [BD Insulin Syringe Ultra-Fine] 1 mL 31 gauge x 5/16 syringe See Rx Instructions .ROUTE .MEDSUPPLY Qty: 10 Rx Instructions: As directed (DME) BD SafetyGlide Insulin Syringe 0.5 mL 31 gauge x 15/64 syringe See Rx Instructions .Route Qty: 100 0RF Rx Instructions: As directed Problem Reconciliation Problems Reviewed?: Yes Patient Discharge Instructions ACTIVITY: Limited activity DIET: continue same diet and regular diet Providers Primary Care Provider: Provider,Referral Admit Provider: Tena Goncalves Attending Provider: Tena Goncalves
[2023-06-08] MEDS: ACETAMINOPHEN 500MG TAB 1000 MG PO (11:10)
--- NOTE | 2023-06-08 14:47 | SW/DCPLANNER ---
Addendum entered by Jackie Brown 06/14/23 07:53: Infant cord screen is NEGATIVE. Original Note: I received a referral on this patient regarding: marijuana and amphetamine use during . OB staff that amphetamine was positive due to Adderall. Patient tested positive on the following dates: 04/01/23 for THC and Amphetamine and 04/29/23 for Amphetamine. Patient and infant were negative at delivery (was not 's first urine). cord screen has been collected. Patient stated that Behavioral Health (Emma Almonte) prescribed Adderall prescriptions (Emma Almonte stated this has not been prescribed to her in over a year). Infant male (Fernanda Arias) was born on 06/07/2023. 's father (Sam Arias 06/07/92) was present at the time of my interview. Patient stated that herself, Sam, and eight other children (Marco Antonio Rodney 03/20/08, Harjinder Rodney 11/19/09, Sean Stern Jr 01/25/11, Fran Stern 01/31/12, Jay Stern 09/01/15, Ruben Stern 07/14/17, Camilo Stern 07/14/18 and Murtaza Swift 03/30/20) will reside at [address] [place] [address] in [place] [address]. Patient's contact number is [phone]. Patient stated that she has had previous Social Service involvement w/ other children: open/closed case. Patient is established w/ W[facility], [facility]. PED MD is Dr Lino and patient stated that she would have transportation to all follow up appointments. Patient stated that she does have the following items at home: crib, carseat, clothing, diapers and will be . Patient is expected to discharge home tomorrow 06/09/23 pending no setbacks. I did make a report to [facility] due to positive drug screens: ID# [id number]. I will follow up w/ ID# prior to discharge.
[2023-06-08 15:40] VITALS: BP 105/53; PULSE 72; RESP 16; TEMP 36.7; O2SAT 97
== END 2023-06-08 17:25 | disposition home or self-care (01) | DRG 806 ==
LOC: 2ND 20:46 → OB 20:46
PROVIDERS: Admitting Provider Obstetrics & Gynecology; Visit Provider Obstetrics & Gynecology
DX: O99.334 Smoking (tobacco) complicating childbirth (principal); B25.9 Cytomegaloviral disease, unspecified; Z37.0 Single live birth; O99.12 Other diseases of the blood and blood-forming organs and certain disorders involving the immune mechanism complicating childbirth; D68.61 Antiphospholipid syndrome; O98.82 Other maternal infectious and parasitic diseases complicating childbirth; D62 Acute posthemorrhagic anemia; Z3A.38 38 weeks gestation of pregnancy; F17.210 Nicotine dependence, cigarettes, uncomplicated; F17.290 Nicotine dependence, other tobacco product, uncomplicated; O99.344 Other mental disorders complicating childbirth; F60.3 Borderline personality disorder; O99.324 Drug use complicating childbirth; F12.90 Cannabis use, unspecified, uncomplicated; O90.81 Anemia of the puerperium
CPT/HCPCS: 59409; 36415; 59025; 80307; 81001; 85007; 85025; 86403; 86850; 88307; J0290

== ENCOUNTER 2023-07-21 12:00 | Emergency (ER) | payer OTHER, SELFPAY ==
[2023-07-21 12:05] VITALS: BP 114/65; PULSE 90; RESP 18; TEMP 37; O2SAT 98; BMI 29.0
--- NOTE | 2023-07-21 12:24 | ED_ITS ---
Discharge Plan Disposition Patient Disposition: Home, Self-Care Condition: Good Prescriptions Prescriptions: New amoxicillin 875 mg tablet 875 mg PO Q12H Qty: 20 0RF No Action ferrous sulfate [FeroSul] 325 mg (65 mg iron) tablet 325 mg PO DAILY Qty: 90 3RF Classic 28 mg iron- 800 mcg tablet 1 tab PO DAILY Qty: 90 2RF (DME) breast pump [Wearable Breast Pump] Device See Rx Instructions .Route Qty: 1 0RF Rx Instructions: Use electric breast pump As directed metoclopramide HCl [Reglan] 10 mg tablet 10 mg PO BIDWMEAL 10 Days Qty: 20 0RF fluoxetine [Prozac] 40 mg capsule 40 mg PO DAILY Referrals Follow up/Referrals: Provider,Referral, MD [Primary Care Provider] - See instructions Activity Restrictions/Add. Instructions Additional Instructions/Restrictions: *Monitor Temp, Over the counter Motrin or Tylenol as directed/as needed Tylenol every 4 hours and Motrin every 6 hours (as long as your family doctor has told you that you can take it) for fever or pain. and straight to ER if unable to lower temp less than 101.0 after medication given *Warm salt water gargles may help to soothe the throat *Throat Lozenges? *Warm fluids like tea with honey may help to soothe the throat? *Sleep elevated *Humidifier/Vaporizer *If you did not take Penicillin shot or was unable to, start taking antibiotic immediately and make sure that you take it for the FULL length of time although you should start to feel better in 24-48 hours *change toothbrush and toothpaste 24-48 hours after starting to take antibiotics so you do not reinfect yourself Monitor Temp. Tylenol and/or Ibuprofen as needed. ER if fever is no less than 101 despite alternating Tylenol and Ibuprofen * Encourage fluids, water, Gatorade, powerade, pedialyte if /toddler/or child *Cold fluids, popsicles and ice cream may feel good on his throat Follow up IMMEDIATELY for new or worsening symptoms or no Noticeable improvement over the next 48-72 hours. 911 for difficulty breathing or swallowing Clinical Impressions Clinical Impression: Strep throat Instructions Patient Instructions: Strep Throat, DI for Strep Throat Discharge ED Provider: Michelle German [facility] [place] HPI General Stated complaint: sore throat Mode of Arrival: Ambulatory Source of Information: Patient Limitations: No Limitations Time Seen by Provider: 07/21/23 12:24 Description of Symptoms (Recalled from Triage Doc. by RN): Pt's symptoms are DAVIS, sore throat, fever, body aches, and chills. HEENT Symptoms (Recalled from RN notes): Yes Resp Symptoms (Recalled from RN notes): No Skin Symptoms (Recalled from RN notes): No MS Symptoms (Recalled from RN notes): No Functional Status (Recalled from RN notes): n/a History of Present Illness Provider Complaint: Patient states she has two kids at home with strep throat and two at home with Flu so she started on Wednesday with body aches, chills sore throat and headache so today when she was still feeling bad so she came in to get checked Related Data Home Medications Medication Instructions Recorded Confirmed fluoxetine 40 mg capsule (Prozac) 40 mg PO DAILY Mood 06/07/23 07/21/23 Previous Rx's Medication Instructions Recorded vits no.126-ferrous fum 1 tab PO DAILY #90 tabs 05/11/23 28 mg iron-folic acid 800 mcg tablet (Classic ) ferrous sulfate 325 mg (65 mg 325 mg PO DAILY Supplement #90 tabs 06/23/23 iron) tablet (FeroSul) breast pump (Wearable Breast Pump) #1 ea 06/25/23 metoclopramide HCl 10 mg tablet 10 mg PO BIDWMEAL 10 days #20 tabs 07/15/23 (Reglan) amoxicillin 875 mg tablet 875 mg PO Q12H #20 tabs 07/21/23 Allergies Allergy/AdvReac Type Severity Reaction Status Date / Time No Known Allergies Allergy Verified 07/21/23 12:24 Worker's Comp Is this a Worker's Comp case?: No [facility] Disclaimer: The information contained in this section may have been updated after the patient was seen, as this information can be updated by other users. Medical History 38 weeks gestation of Acute blood loss anemia Anemia Antiphospholipid antibody syndrome Breech presentation of fetus CMV (cytomegalovirus infection) status positive Depression History of delivery History of stillbirth Marijuana use during depression Screening for genetic disease carrier status Horizon carrier screen 12/24/22 negative for 4 conditions tested - CF, SMA, Fragile X and Duchene muscular dystrophy Tobacco use affecting , antepartum Surgical History No significant past surgical history Family History Other Alcoholism Anemia Asthma Cancer Diabetes FHx: mental illness Substance abuse Thyroid disorder Social History Smoking Status: Current every day smoker tobacco type: e-cigarettes years smoked: 22 alcohol intake: never substance use type: denies use, marijuana and amphetamines current occupational status: employed Travel in the last 8 weeks: None do you feel safe at home: Yes victim of physical abuse: No victim of emotional abuse: No victim of sexual abuse: No ROS Obtained: Yes All systems reviewed & no additional complaints except as documented and Yes Systems reviewed as appropriate & no additional complaints except as documented Constitutional Constitutional: Reports system reviewed and no additional complaints, except as documented, Reports as per HPI, Reports body ache, Reports chills, Reports fever(s) and Reports headache(s) ENT Ears, Nose, Mouth, and Throat: Reports system reviewed and no additional complaints, except as documented, Reports as per HPI, Reports headache(s), Reports nasal congestion and Reports sore throat Cardiovascular Cardiovascular: Reports system reviewed and no additional complaints, except as documented and Reports as per HPI Respiratory Respiratory: Reports system reviewed and no additional complaints, except as documented and Reports as per HPI Neurologic Neurologic: Reports headache(s) Physical Exam General General appearance: alert and in no apparent distress ENT ENT exam: Present mucous membranes moist Expanded ENT Exam Nose exam: Absent sinus tenderness Throat exam: Present tonsillar erythema Respiratory Respiratory exam: Present normal lung sounds bilaterally; Absent respiratory distress or wheezes Cardiovascular Cardiovascular exam: Present regular rate, normal rhythm and normal heart sounds Abdominal Exam Abdominal exam: Present soft and normal bowel sounds; Absent distention or tenderness Neurological Exam Neurological exam: Present alert, oriented X3 and normal gait Medical Decision Making Melo Inquiry Pt receiving controlled substance: No Melo was queried for this patient: No Vital Signs: 07/21/23 12:05 Temperature 98.6 F Temperature Source Oral Pulse Rate [Right Radial] 90 Respiratory Rate 18 Blood Pressure [Right Arm] 114/65 Blood Pressure Mean [Right Arm] 81 Blood Pressure Source [Right Arm] Automatic Cuff Blood Pressure Position [Right Arm] Sitting 02 Sat by Pulse Oximetry 98 Oxygen Delivery Method Room Air Lab Data Lab results reviewed: Yes I reviewed the patient's lab results.
[2023-07-21 12:43] LABS: UTC Influenza A Antigen Negative (Negative); UTC Influenza B Antigen Negative (Negative); UTC Strep Screen (Rapid) Positive (Negative)
[2023-07-21 12:54] VITALS: BP 114/65; PULSE 90; RESP 18; TEMP 37; O2SAT 98
== END 2023-07-21 12:54 | disposition home or self-care (01) ==
PROVIDERS: Emergency Provider Nurse Practitioner
DX: J02.0 Streptococcal pharyngitis (principal); R07.0 Pain in throat; R50.9 Fever, unspecified; R51.9 Headache, unspecified; R09.81 Nasal congestion; F17.290 Nicotine dependence, other tobacco product, uncomplicated
CPT/HCPCS: 87804; 87880; 99212; 99214; G0463

== ENCOUNTER 2024-04-26 13:35 | Outpatient (CLI) | payer OTHER, SELFPAY | END 2024-04-26 23:59 | disposition home or self-care (01) | LOC: LAB.DROPOF 04-27 09:20 | PROVIDERS: PCP Obstetrics & Gynecology; Visit Provider Obstetrics & Gynecology | DX: Z34.81 Encounter for supervision of other normal pregnancy, first trimester (principal) | CPT/HCPCS: 87086 ==

== ENCOUNTER 2024-05-18 13:08 | Outpatient (CLI) | payer OTHER, SELFPAY ==
--- NOTE | 2024-05-18 13:09 | US_ITS ---
PROCEDURE: US OB /MATERNAL DETAIL CLINICAL INDICATION: 20 wk + Anatomy Scan-US OB Complete COMPARISON: No exams were available for comparison FINDINGS: Transabdominal sonographic images of the pelvis were obtained. Her last menstrual period is unknown. Single viable intrauterine gestation. Breech position. Placenta: Anteriorplacenta grade 1. There is an average amount of fluid. The cervix appears satisfactory. Closed and measuring 3.76 cm in length. Incomplete survey performed and was unremarkable on the submitted images as in PACS. No discrete anomalies identified on survey imaging by technologist. Active fetus. Three-vessel cord with satisfactory umbilical cord insertion. 4- chamber heart noted. Situs, aortic arch,appear normal. Survey of brain & ventricles Unremarkable. Cerebellum, thalamus, choroid plexus, cisterna magna appear normal. Face and neck survey unremarkable. Profile, appeared normal. Abdomen: Both kidneys noted and unremarkable. Stomach and bladder noted and satisfactory. Amniotic Fluid: Adequate. MVP 2.19 cm Measurements: Average ultrasound age 16weeks 4days. Estimated due date by ultrasound age 0610/29/2024. Estimated weight 155g BPD = 16weeks 4days HC = 16weeks 4days AC = 16weeks 5days FL = 16weeks 1day Heart Rate = 136bpm Cerebellum = 16weeks 2days Humerus = 15weeks 6days HC/AC is 1.2 FL/BPD is 0.6 FL/AC is 0.19 IMPRESSION: 1. Viable fetus in the breech presentation with an anterior placenta grade 1. 2. The fluid is within normal limits with an MVP 2.19 cm. 3. Limited anatomical scan appears normal. 4. She is currently 16 weeks 4 days and her CARTER from this ultrasound will be 10/29/2024. 5. Suggest repeat scan in 4 weeks for complete anatomy. Dictated by: Edis Valdovinos MD 05/18/2024 18:03 Edis Valdovinos MD in [place] 05/18/2024 18:03
== END 2024-05-18 23:59 | disposition home or self-care (01) ==
LOC: RAD 13:09
PROVIDERS: PCP Obstetrics & Gynecology; Visit Provider Obstetrics & Gynecology
DX: Z36.3 Encounter for antenatal screening for malformations (principal); Z3A.16 16 weeks gestation of pregnancy; F60.3 Borderline personality disorder; F17.290 Nicotine dependence, other tobacco product, uncomplicated; Z87.51 Personal history of pre-term labor; Z87.59 Personal history of other complications of pregnancy, childbirth and the puerperium
CPT/HCPCS: 76811

== ENCOUNTER 2024-06-28 13:42 | Outpatient (CLI) | payer OTHER, SELFPAY ==
--- NOTE | 2024-06-28 13:46 | US_ITS ---
PROCEDURE: US OB /MATERNAL DETAIL CLINICAL INDICATION: anatomy scan COMPARISON: US US OB /MATERNAL DETAIL from 05/18/2024 FINDINGS: Transabdominal sonographic images of the pelvis were obtained. From her established due date she is 22 weeks 3 days. Single viable intrauterine gestation. Breech position. Placenta: Anteriorplacenta grade 1. There are several placental lakes. There is an average amount of fluid. The cervix appears satisfactory. Closed and measuring 3.42 cm in length. Complete survey performed and was unremarkable on the submitted images as in PACS. No discrete anomalies identified on survey imaging by technologist. Active fetus. Three-vessel cord with satisfactory umbilical cord insertion. 4- chamber heart noted. Situs, aortic arch, LVOT, RVOT, three-vessel view appear normal. Survey of brain & ventricles Unremarkable. Cerebellum, thalamus, choroid plexus, cisterna magna appear normal. Face and neck survey unremarkable. Profile, nasion, lips and nose appeared normal. Diaphragm and chest views unremarkable. Abdomen: Both kidneys noted and unremarkable. Stomach and bladder noted and satisfactory. Spine: Survey of the spine satisfactory with no anomalies identified nor imaged. Cervical, thoracic, lower spine appear normal. Both arms and legs noted. Amniotic Fluid: Adequate. MVP 5.22 cm. Measurements: Average ultrasound age 22weeks 1day. Estimated due date by ultrasound age 0610/31/2024. Estimated weight 458g BPD = 22weeks 2days HC = 22weeks AC = 22weeks 1day FL = 21weeks 5days Growth Percentile= 19 Heart Rate = 132bpm Cerebellum = 21weeks 4days Humerus = 22weeks 0 days HC/AC is 1.16 FL/BPD is 0.69 FL/AC is 0.21 IMPRESSION: 1. Viable fetus in the breech presentation with an anterior placenta grade 1. There are several placental lakes. 2. The fluid is within normal limits with an MVP 5.22 cm. 3. Anatomical scan appears normal. 4. biometry is consistent with the dates. 5. There are prominent vessels in the right lower quadrant and would suggest repeat scan at 28 weeks. Dictated by: Edis Valdovinos MD 06/28/2024 15:14 Edis Valdovinos MD in [place] 06/28/2024 15:14
== END 2024-06-28 23:59 | disposition home or self-care (01) ==
LOC: RAD 13:43
PROVIDERS: PCP Obstetrics & Gynecology; Visit Provider Obstetrics & Gynecology
DX: Z34.82 Encounter for supervision of other normal pregnancy, second trimester (principal); Z3A.22 22 weeks gestation of pregnancy
CPT/HCPCS: 76811

== ENCOUNTER 2024-08-18 09:01 | Outpatient (CLI) | payer OTHER, SELFPAY ==
--- NOTE | 2024-08-18 09:45 | US_ITS ---
PROCEDURE: US OB >= 14 WEEKS FETUS CLINICAL INDICATION: repeat anatomy and growth COMPARISON: US US OB /MATERNAL DETAIL from 05/18/2024 US US OB /MATERNAL DETAIL from 06/28/2024 FINDINGS: Transabdominal sonographic images of the uterus were obtained. From her established due date she is 29weeks 5days. The following parameters are obtained: Viable Fetus in the breech presentation with an anterior placenta grade 1. There are multiple lakes within the inferior aspect of the placenta. There continue to be prominent vessels in the right lower quadrant. There also prominent vessels on the left side. Average ultrasound age is 30weeks 1day Estimated weight 1,455g, 3 lb 3 oz The cervix measures 3.74 cm. Measurements: heart Rate = 146bpm BPD = 30weeks 5days, 69 percentile HC = 30weeks 4days, 36 percentile AC = 29weeks 6days, 49 percentile FL = 29weeks 2days, 24 percentile HC/AC is 1.08 FL/BPD is 0.73 FL/AC is 0.22 39 percentile Amniotic fluid index: 14.06cm, MVP 4.22 cm. No obvious anomalies evident.Kidneys, profile, bladder, four-chamber heart, three-vessel cord appear normal. IMPRESSION: 1. Viable fetus in the breech presentation with an anterior placenta grade 1. There are multiple placental lakes along the inferior aspect of the placenta. 2. The fluid is within normal limits with an amniotic fluid index 14.06 cm, MVP 4.22 cm. 3. There has been good interval growth with the fetus currently 39th percentile. 4. There continues to be dilated vessels in the right lower quadrant and there are vessels that are dilated in the left lower quadrant as well. 5. Limited anatomical scan appears normal. Dictated by: Edis Valdovinos MD 08/18/2024 17:10 Edis Valdovinos MD in [place] 08/18/2024 17:10
[2024-08-18 10:31] LABS: Basophils % 0.4 % (0.1-2.0); Eosinophils % 0.3 % (0.1-12.0); Hematocrit 33.8 % (37.0-47.0); Hemoglobin 11.2 g/dL (12.2-16.2); Lymphocytes # 1.8 K/mm3 (0.7-4.5); Lymphocytes % 19.2 % (10-50); Mean Corpuscular HGB Conc 33.1 g/dL (31.8-35.4); Mean Corpuscular Volume 84.5 fl (81-99); Mean Platelet Volume 11.4 fl (7.4-10.4); Monocytes # 0.4 K/mm3 (0.1-1.0); Monocytes % 4.5 % (1.7-9.3); Neutrophils # 6.9 K/mm3 (1.8-7.8); Neutrophils % 75.2 % (37.0-80.0); Platelet Count 205 K/mm3 (142-424); Red Cell Distribution Width 13.2 % (11.5-17.5); White Blood Count 9.2 K/mm3 (4.8-10.8)
[2024-08-18 10:41] LABS: Glucose 1 Hour 136 mg/dL (74-100)
[2024-08-18 16:05] LABS: RPR W/RFX Titers Nonreactive (Nonreactive)
[2024-08-19 07:30] LABS: Hepatitis B Surface Antigen Negative (Negative)
[2024-08-19 08:45] LABS: Rubella Antibodies, IgG 2.12 index (Immune >0.99)
== END 2024-08-18 23:59 | disposition home or self-care (01) ==
LOC: RAD 09:02
PROVIDERS: Visit Provider Obstetrics & Gynecology
DX: Z36.2 Encounter for other antenatal screening follow-up (principal); O21.9 Vomiting of pregnancy, unspecified; O99.343 Other mental disorders complicating pregnancy, third trimester; F32.A Depression, unspecified; Z3A.29 29 weeks gestation of pregnancy
CPT/HCPCS: 36415; 76805; 82947; 85025; 86592; 86762; 86850; 87340

== ENCOUNTER 2024-10-03 12:21 | Outpatient (CLI) | payer OTHER, SELFPAY | END 2024-10-03 23:59 | disposition home or self-care (01) | LOC: LAB.DROPOF 10-05 12:22 | PROVIDERS: Visit Provider Obstetrics & Gynecology | DX: Z34.83 Encounter for supervision of other normal pregnancy, third trimester (principal); Z3A.36 36 weeks gestation of pregnancy | CPT/HCPCS: 86403 ==

== ENCOUNTER 2024-10-13 13:32 | Outpatient (CLI) | payer OTHER, SELFPAY ==
--- NOTE | 2024-10-13 13:30 | US_ITS ---
PROCEDURE: US OB FOLLOW UP CLINICAL INDICATION: growth and position COMPARISON: US US OB /MATERNAL DETAIL from 05/18/2024 US US OB /MATERNAL DETAIL from 06/28/2024 US US OB >= 14 WEEKS FETUS from 08/18/2024 FINDINGS: Transabdominal sonographic images of the pelvis were obtained. The following parameters are obtained: From her established due date she is 37weeks 5days Viable fetus in the cephalic presentation with an anterior placenta grade 2. There are several placental lakes. The cervix measures 2.95 cm heart rate: 133bpm bpm. Average ultrasound age 37 weeks 6 days Estimated weight 3311 grams, 7 lb 5 oz BPD: 37weeks 6days, 74 percentile HC: 38weeks 0 days, 34 percentile AC: 38weeks 1day, 76 percentile FL: 37weeks 1day, 36 percentile HC/AC: 0.97 FL/BPD: 0.78 FL/AC: 0.21 Growth percentile: 63 Amniotic fluid: MVP 4.96 cm No obvious anomalies evident. profile seen, stomach, bladder, kidneys, three-vessel cord, four chamber heart appear normal. There is mild unilateral renal pelvis dilation measuring 6.8 mm. There continues to be dilated blood vessels in the right lower quadrant and left lower quadrant. IMPRESSION: 1. Viable fetus in the cephalic presentation with an anterior placenta grade 2. There are several placental lakes. 2. The fluid is within normal limits with an MVP 4.96 cm. 3. Limited anatomical scan appears normal. 4. There is unilateral renal pelvis dilation measuring 6.8 mm. 5. There continues to be prominent right and left lower quadrant blood vessels present. 6. There has been good interval growth with the fetus currently 63rd percentile. Dictated by: Edis Valdovinos MD 10/14/2024 06:13 Edis Valdovinos MD in [place] 10/14/2024 06:13
== END 2024-10-13 23:59 | disposition home or self-care (01) ==
LOC: RAD 13:33
PROVIDERS: PCP Obstetrics & Gynecology; Visit Provider Obstetrics & Gynecology
DX: O32.1XX0 Maternal care for breech presentation, not applicable or unspecified (principal); Z3A.37 37 weeks gestation of pregnancy
CPT/HCPCS: 76816

== ENCOUNTER 2024-10-23 04:52 | Inpatient (IN) | payer OTHER, SELFPAY ==
[2024-10-23] VITALS (8 sets, daily range): BP systolic 89–116; BP diastolic 50–62; PULSE 85–124; RESP 14–19; TEMP 36.1–36.9; O2SAT 97–100; BMI 35.6; BMI 37.5
[2024-10-23 07:20] LABS: Basophils # 0.1 K/mm3 (0-0.2); Basophils % 0.6 % (0.1-2.0); Eosinophils # 0.2 Kmm3 (0.0-0.4); Eosinophils % 1.4 % (0.1-12.0); Hematocrit 30.8 % (37.0-47.0); Immature Granulocytes # 0.21 10^3uL; Immature Granulocytes % 1.8 %; Lymphocytes # 2.9 K/mm3 (0.7-4.5); Lymphocytes % 24.8 % (10-50); Mean Corpuscular HGB Conc 32.5 g/dL (31.8-35.4); Mean Corpuscular Hemoglobin 26.6 pg (27.0-31.2); Mean Corpuscular Volume 81.9 fl (81-99); Mean Platelet Volume 12.1 fl (7.4-10.4); Monocytes % 8.4 % (1.7-9.3); Neutrophils # 7.4 K/mm3 (1.8-7.8); Nucleated Red Blood Cells # 0 10^3/uL; Nucleated Red Blood Cells % 0 %; Platelet Count 189 K/mm3 (142-424); Red Blood Count 3.76 M/mm3 (4.20-5.40); Red Cell Distribution Width 15.4 % (11.5-17.5); White Blood Count 11.8 K/mm3 (4.8-10.8)
[2024-10-23 07:35] LABS: Microscopic, Urine URINE MICROSCOPIC (MICROSCOPIC)
[2024-10-23 08:11] LABS: Appearance,Urine CLEAR (Clear); Bilirubin,Urine Negative (Negative); Blood, Urine Negative (Negative); Color,Urine YELLOW (Yellow); Glucose,Urine (UA) Negative (Negative); Ketones,Urine Negative (Negative); Leukocyte Esterase,Urine Negative (Negative); Nitrate,Urine Negative (Negative); Protein,Urine Negative (Negative); Specific Gravity, Urine 1.025 (1.005-1.030); Urobilinogen,Urine 0.2 EU/dl (0.2)
[2024-10-23 08:25] LABS: Phencyclidine Screen,Urine Negative ng/ml (<25)
[2024-10-23 08:26] LABS: Benzodiazepines Screen,Urine Negative ng/ml (<200)
[2024-10-23 08:27] LABS: Amphetamine/Metha Screen,Urine Negative ng/ml (<1000)
[2024-10-23 08:28] LABS: Barbiturates Screen,Urine Negative ng/ml (<200)
[2024-10-23] MEDS: OXYTOCIN/RINGERS LACTATE 30 UNITS/500 ML BAG IV (08:30)
[2024-10-23] MEDS: DEXTROSE 5%-LACTATED RINGERS 1,000 ML 125 ML IV (08:30)
[2024-10-23 08:31] LABS: Cocaine Screen,Urine Negative ng/ml (<300); WBC,Urine Occasional #/hpf (0-3)
[2024-10-23] MEDS: LACTATED RINGERS 1000ML 1,000 ML 250 ML IV ×2 (08:31→09:31)
[2024-10-23 08:32] LABS: Bacteria,Urine Trace /lpf; Calcium Oxalate Crystals,Urine 1+ /lpf; Methadone Screen,Urine Negative ng/ml (<300)
[2024-10-23 08:34] LABS: Cannabinoid Screen,Urine Negative ng/ml (<50)
[2024-10-23 08:35] LABS: Opiate Screen,Urine Negative ng/ml (<300)
--- NOTE | 2024-10-23 08:57 | P.HP_ITS ---
OB - H&P: HPI Antepartum History of Present Illness Chief complaint: Scheduled elective induction of labor History of present illness: Ms Hererra is a 34 yo presents for scheduled elective induction of labor at 39w1d. complicated by grand multiparity, antiphospholipid antibody syndrome, depression, ADHD, borderline personality disorder. She has history of stillbirth at 35 weeks. She has been taking prophylactic lovenox and fluoxetine 40 mg daily. Last dose of Lovenox was 10/21/24. Limited care. History of Present Criteria for establishing EDC:: based on 2nd trimester US only care: limited care Ultrasounds: normal mid trimester US Medical complications: other (antiphospholipid antibody syndrome) Labs Blood type: O (+) positive Rubella: immune RPR/VDRL: nonreactive GBS status: negative HBsAG: negative PFSH PFS Disclaimer: The information contained in this section may have been updated after the patient was seen, as this information can be updated by other users. Medical History (Updated 10/23/24 @ 09:16 by Tena Goncalves DO) Encounter for elective induction of labor Request for sterilization Grand multipara Antiphospholipid antibody syndrome History of stillbirth History of delivery Nausea and vomiting during Constipation Depression affecting Depression Acute blood loss anemia Marijuana use during 38 weeks gestation of CMV (cytomegalovirus infection) status positive Screening for genetic disease carrier status Tobacco use affecting , antepartum depression Anemia Surgical History No significant past surgical history Family History Other Alcoholism Anemia Asthma Cancer Diabetes FHx: mental illness Substance abuse Thyroid disorder Social History Smoking Status: Former smoker years smoked: 22 smoking status stop date: stopped 6 months ago alcohol intake: never substance use type: denies use, marijuana and amphetamines current occupational status: unemployed Travel in the last 8 weeks?: None do you feel safe at home: Yes victim of physical abuse: No victim of emotional abuse: No victim of sexual abuse: No Have you lived/traveled outside US in past 30 days?: No Contact w/someone who lives/traveled outside US past 30 days?: No Exposure to someone with infectious disease in past 14 days?: No Do you have a fever (greater than 100.4 F or 38 C)?: No Have you tested positive for COVID-19?: No Exposed to someone with COVID-19 in past 14 days?: No Do you have a sore throat?: No Do you have a cough?: No Do you have any weakness?: No Do you have any diarrhea?: No Are you experiencing any unusual bleeding?: No Do you have any muscle aches/pain?: No Do you have any abdominal pain?: No Are you experiencing loss of taste or smell?: No Other Medical History Have you received the Flu Vaccine for this season: No Have you received the Pneumonia Vaccine: No Review of Systems Review of Systems Review of systems:: pertinent systems reviewed and negative unless documented below *Genitourinary Genitourinary: Reports pelvic pain Comments: + contractions Meds Home Medications and Allergies Home Medications ?Medication ?Instructions ?Recorded ?Confirmed ?Type vits no.126-ferrous fum 1 tab PO DAILY #90 ta bs 05/11/23 10/19/24 Rx 28 mg iron-folic acid 800 mcg tablet (Classic ) alcohol swabs (Alcohol Pads) 1 pad topical DAILY #100 ea 04/27/24 10/19/24 Rx alcohol swabs (Alcohol Prep Pads) 1 pad topical .prn # 100 ea 08/11/24 10/19/24 Rx fluoxetine 40 mg capsule (Prozac) 40 mg PO DAILY Mood #30 caps 08/31/24 10/19/24 Rx pen needle, diabetic 29 gauge x #100 ea 09/04/2410/19 Rx 1/2 (Ultra-Thin II Insulin Pen [place]) zuranolone 25 mg capsule (Zurzuvae) 50 mg (2 x 25 mg) PO DAILY 14 days 10/19/24 10/19/24 Rx #28 caps New Prescriptions to Start Prescriptions: Allergies Allergy/AdvReac Type Severity Reaction Status Date / Time No Known Allergies Allergy Verified 10/19/24 10:31 OB - H&P: Exam Physical Exam Vital signs: Temp Pulse Resp BP Pulse Ox O2 Del Method 98.4 F 104 H 18 116/62 98 Room Air 10/23/24 06:00 10/23/24 06:00 10/23/24 06:00 10/23/24 06:00 10/23/24 06:00 10/23/24 06:00 Constitutional no acute distress and cooperative Routine HEENT Exam Head: Present normocephalic and atraumatic Eye: Absent conjunctivae pink ENT: Present mucous membranes moist Routine Neck Exam Present full ROM Routine Respiratory Exam Present CTA bilaterally and normal respiratory effort Routine Cardiovascular Exam Present RRR Routine Abdominal Exam Present soft (Gravid); Absent tenderness Routine Rectal Exam Patient deferred: visual exam Routine Exam External: Present normal urethra appearance; Absent erythema, swelling, tenderness, lesions, lacerations, vulvar erythema or vulvar tenderness Routine Extremities Exam Present edema (+1 bilateral lower extremity edema) and full ROM; Absent calf tenderness Routine Neurological Exam Present alert, moving all extremities and normal speech Routine Psychiatric Exam Present normal affect and cooperative Detailed Labor and Delivery Exam Dilation (cm): 3 Effacement (%): 60 Cervix position: mid station: -2 Consistency: soft Membranes: artificially ruptured Amniotic fluid: clear Baseline heart rate: 130 monitor accelerations: Present monitor decelerations: None termite control service representative variability: Moderate (11-25) Contraction frequency (min): 3 OB - Results Labs Labs: Short CBC 10/23/24 Range/Units 05:52 WBC 11.8 H (4.8-10.8) K/mm3 Hgb 10.0 L (12.2-16.2) g/dL Hct 30.8 L (37.0-47.0) % Plt Count 189 (142-424) K/mm3 Urine 10/23/24 Range/Units 05:20 Urine Color Yellow (Yellow) Urine Appearance Clear (Clear) Urine pH 6.0 (5.0-8.5) Ur Specific [place] 1.025 (1.005-1.030) Urine Protein Negative (Negative) Urine Glucose (UA) Negative (Negative) OB - A/P Antepartum (1) Encounter for elective induction of labor: Status: Acute (2) Grand multipara: Status: Acute (3) Antiphospholipid antibody syndrome: Status: Acute (4) History of stillbirth: Status: Acute (5) History of delivery: Status: Acute (6) Depression affecting : Status: Acute (7) Borderline personality disorder: Status: Acute (8) ADHD: Status: Acute Additional Plan Planning to breastfeed?: Yes Additional Information:: Admit to [facility] for elective induction of labor Induction with Pitocin and amniotomy GBS negative Close monitoring Anticipate vaginal delivery
--- NOTE | 2024-10-23 09:51 | P.PNANES_ITS ---
[facility] Disclaimer: The information contained in this section may have been updated after the patient was seen, as this information can be updated by other users. Medical History Encounter for elective induction of labor Request for sterilization Grand multipara Antiphospholipid antibody syndrome History of stillbirth History of delivery Nausea and vomiting during Constipation Depression affecting Depression Acute blood loss anemia Marijuana use during 38 weeks gestation of CMV (cytomegalovirus infection) status positive Screening for genetic disease carrier status Tobacco use affecting , antepartum depression Anemia Surgical History No significant past surgical history Family History Other Alcoholism Anemia Asthma Cancer Diabetes FHx: mental illness Substance abuse Thyroid disorder Social History Smoking Status: Former smoker years smoked: 22 smoking status stop date: stopped 6 months ago alcohol intake: never substance use type: denies use, marijuana and amphetamines current occupational status: unemployed Travel in the last 8 weeks?: None do you feel safe at home: Yes victim of physical abuse: No victim of emotional abuse: No victim of sexual abuse: No Have you lived/traveled outside US in past 30 days?: No Contact w/someone who lives/traveled outside US past 30 days?: No Exposure to someone with infectious disease in past 14 days?: No Do you have a fever (greater than 100.4 F or 38 C)?: No Have you tested positive for COVID-19?: No Exposed to someone with COVID-19 in past 14 days?: No Do you have a sore throat?: No Do you have a cough?: No Do you have any weakness?: No Do you have any diarrhea?: No Are you experiencing any unusual bleeding?: No Do you have any muscle aches/pain?: No Do you have any abdominal pain?: No Are you experiencing loss of taste or smell?: No [facility] Anesthesia Checklist Patient Identification Patient Identification: Arm Band and Verbal (Name & ) Structural Data Admitted From: Inpatient Planned Operative Procedure/s: epidural Consent for Planned Operative Procedure(s) Verified: Yes Verified Documents: Surgical Consent and History and Physical Additional verifications Patient : Yes Anesthesia Reactions: No Airway Assessment Mallampati Score:: Class I Neurological Assessment Level of Consciousness: Awake, Alert and Appropriate Anesthesia Plan Anesthesia Risk discussed: Yes Anesthesia Plan: Verified ASA Class: II Anesthesia Type: Epidural
[2024-10-23] MEDS: ONDANSETRON 4MG/2ML VIAL 4 MG IV (10:01)
[2024-10-23] MEDS: ePHEDrine SULF 50MG/ML VIAL 10 MG IV ×2 (10:21→12:57)
[2024-10-23] MEDS: LACTATED RINGERS 1000ML 1,000 ML 999 ML IV (10:25)
--- NOTE | 2024-10-23 10:44 | HMH.PHAINT1 ---
Pharmacy Intervention Comments: MEDICATION RECONCILIATION COMPLETED EXTERNAL FILL HISTORY FROM PHARMACY. -COLLEEN VILLAR, COLTD
[2024-10-23] MEDS: LACTATED RINGERS 1000ML 500 ML 999 ML IV (14:10)
[2024-10-23 14:53] LABS: RPR W/RFX Titers Nonreactive (Nonreactive)
[2024-10-23 16:28] LABS: Albumin Level 2.9 g/dl (3.5-5.0); Chloride 109 mmol/L (98-107); Sodium 134 mmol/L (136-145)
[2024-10-23 16:29] LABS: Potassium 3.5 mmoL/L (3.5-5.1)
[2024-10-23 16:31] LABS: Alanine Aminotransferase 15 U/L (12-78); Alkaline Phosphatase 118 U/L (38-126); Anion Gap 7.5 mEq/L (5-15); Aspartate Amino Transferase 19 U/L (14-36); Blood Urea Nitrogen 7 mg/dl (7-17); Carbon Dioxide 21 mmol/L (22.0-30.0); Creatinine Clearance Estimated 291 mL/min (50-200); Estimated Glomerular Filt Rate 183 ml/min (>60); GFR (African American) 221 ML/MIN (>60); Globulin 2.8 g/dL (1.3-3.2); Total Protein,Serum 5.7 g/dl (6.3-8.2)
[2024-10-23 16:32] LABS: Calcium 8.3 mg/dl (8.4-10.2); Glucose 119 mg/dl (74-100)
[2024-10-23 16:44] LABS: Bilirubin,Total 0.1 mg/dl (0.2-1.3)
--- NOTE | 2024-10-23 16:56 | EXP.LABOR.NO ---
Labor Note Subjective: Date: 10/23/24 Time: 16:56 Objective: NST:: Reactive Contractions:: every 4-5 minutes Cervical Dilation:: 4 Effacement:: 60% Station: -2 Membranes: artificially ruptured Fetus: Monitoring?: Yes monitoring type:: External Assessment: Labor progressing?: No Problems: (1) Encounter for elective induction of labor: Category: Medical Code(s): Z34.90 - Encounter for supervision of normal , unspecified, unspecified trimester (2) Grand multipara: Category: Medical Code(s): Z64.1 - Problems related to multiparity (3) Antiphospholipid antibody syndrome: Category: Medical Code(s): D68.61 - Antiphospholipid syndrome (4) History of stillbirth: Category: Medical Code(s): Z87.59 - Personal history of other complications of , childbirth and the puerperium (5) History of delivery: Category: Medical Code(s): Z87.51 - Personal history of pre-term labor (6) Depression affecting : Category: Medical Code(s): O99.340 - Other mental disorders complicating , unspecified trimester; F32.A - Depression, unspecified (7) Borderline personality disorder: Category: Medical Code(s): F60.3 - Borderline personality disorder (8) ADHD: Qualifiers: Attention deficit-hyperactivity disorder type: unspecified Qualified Code(s): F90.9 - Attention-deficit hyperactivity disorder, unspecified type Category: Medical Code(s): F90.9 - Attention-deficit hyperactivity disorder, unspecified type (9) Request for sterilization: Category: Medical Code(s): Z30.2 - Encounter for sterilization (10) Failure to progress in labor: Category: Medical Code(s): O62.2 - Other uterine inertia Plan: Plan for ?: Yes Additional information:: Cervical exam unchanged over 6-7 hours, /2. Pitocin reached 18 units with contractions about 4 minutes apart. NST between category 1 and category 2 throughout the day with irregular variable decelerations and periods of minimal variability. Discussed failure to progress. Decision was made to proceed with primary secondary to failure to progress. Discussed risks, benefits, alternatives, expectations and possible complications of surgery. All questions addressed and answered. She voiced understanding of risks and possible complications. Consent form signed. She requests permanent sterilization. Proceed with primar and bilateral salpingectomy.
--- NOTE | 2024-10-23 19:42 | P.OP_ITS ---
Date of procedure: 10/23/24 Pre-op Diagnosis:: 1. IUP at 39w1d 2. elective induction of labor 3. Grand multipara 4. Antiphospholipid antibody syndrome 5. History of stillbirth 6. History of delivery 7. Failure to progress 8. Desires permanent sterilization Post-op Diagnosis:: 1. IUP at 39w1d 2. elective induction of labor 3. Grand multipara 4. Antiphospholipid antibody syndrome 5. History of stillbirth 6. History of delivery 7. Failure to progress 8. Desires permanent sterilization Procedure performed:: 1. Primary Low Transverse Section 2. Bilateral salpingectomy Surgeon:: Tena Goncalves DO Director Global(s):: Edis Valdovinos MD ANALYST COMPETITIVE INTELLIGENCE:: Other (WILLIE Jimenez) Anesthesia: epidural Estimated blood loss (mL): 700 Clinical Note:: Ms Herrera is a 34 yo presents for scheduled elective induction of labor at 39w1d. complicated by grand multiparity, antiphospholipid antibody syndrome, depression, ADHD, borderline personality disorder. She has history of stillbirth at 35 weeks. She has been taking prophylactic lovenox and fluoxetine 40 mg daily. Last dose of Lovenox was 10/21/24. Limited care. She underwent induction of labor with Pitocin and amniotomy. 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 Pitocin reached 18 units. Cervix 4/60/-2. Baby's head was not well engaged. heart tones varied between category 1 strip and category 2 strip with intermittent variable decelerations and periods of minimal variability. Decision was made to proceed with primary secondary to failure to progress. Operative findings:: 1. Live female baby, John, weighing 8 lb 8 oz. APGARs 8 (1 min), 9 (5 min) 2. Nuchal cord x 1 3. Grossly normal appearing uterus, bilateral fallopian tubes and ovaries Operative note:: The risks, benefits and alternatives of the procedure were reviewed with the patient. Informed consent was obtained. Patient was taken to the operating room where epidural was bolused. The patient received 2 grams of Ancef preoperatively. Patient was placed in dorsal supine position with a leftward tilt. SCDs in place. Ha catheter had been placed and was draining clear urine prior to the start of the procedure. heart tones were obtained. Vagina was prepped with Betadine swabs x 3. Patient was then prepped and draped in normal sterile fashion. Allis clamp test was performed to ensure adequate anesthesia. A Pfannenstiel skin incision was made 2 cm above pubic symphysis. This was carried through to underlying layer of fascia. Fascia was incised in midline, extended laterally with Giron scissors. Superior aspect of fascial incision was grasped with two Kannan clamps, elevated up, and rectus muscle dissected off bluntly and sharply with Giron scissors. Inferior aspect of fascial incision was grasped with two Kannan clamps, elevated up, and rectus muscle dissected off bluntly and sharply with Giron scissors. The retcus muscle was then in the midline and the peritoneum was entered bluntly with a digit. Peritoneal incision was then extended superiorly and inferiorly with good visualization of the bladder. Marcial retractor was inserted. The lower uterine segment was incised in a transverse fashion. Small amount of clear amniotic fluid was noted. Head was delivered without difficulty. Nuchal x 1 was reduced. Remainder of body was delivered without difficulty. Mouth and nares were bulb suctioned. Spontaneous cry was noted. Delayed cord clamping was performed for 60 seconds. The umbilical cord was clamped and cut. The was handed to awaiting pediatric staff in stable condition. Dr. Lino was present. Apgars were 8(1 min), 9(5 min). Cord blood was obtained. Gentle traction on the umbilical cord and uterine fundal ma ssage delivered the placenta. Placenta was intact. Placenta will be sent to pathology for review. Uterus was cleared of all clots and debris with a moist laparotomy sponge. Corners of the uterine incision were grasped with Allis clamps. The uterine incision was reapproximated with # 1 Vicryl suture in a running, locked stitch. Second layer of the same stitch was used to imbricate the incision. V esicouterine peritoneum was reapproximated in a running locked stitch with 2-0 Vicryl suture. Oozing was noted. Surgicel powder was applied to uterine incision. Surgicel gel foam was laid across uterine incision. Hemostasis was noted. Posterior cul-de-sac was cleaned with moist laparotomy sponge. Gutters cleared of all clots and debris with a moist laparotomy sponge. Reinspection of the lower uterine segment demonstrated hemostasis. Attention was then turned to the left fallopian tube, which was grasped with a [place] clamp. Enseal device was used to clamp, ligate and transect the right mesosalpinx and fallopian tube at uterine cornua,. Same procedure was carried out on the contralateral side. Specimens will be sent to pathology for review. At this point all instruments and sponges were removed from the pelvis.? The peritoneum was grasped with Babs clamps x 3. The peritoneum was reapproximated with 0 Vicryl suture in a running stitch. The corners of the fascia were grasped with Kannan clamps, and the fascia was reapproximated with two # 1 Vicryl suture overlapped to the right of midline. Subcutaneous tissue was irrigated with clear return of fluids. The subcutaneous tissue was reapproximated with 3-0 Vicryl. The skin was reapproximated with Insorb shani. Telfa was placed over closed Pfannenstiel skin incision. At the end of the procedure, the uterus was firm with minimal vaginal bleeding. Patient tolerated the procedure well. Instrument, sponges and needle counts were correct x 2. Mom and baby were transported to recovery room in stable condition. Condition: stable Disposition: floor Specimens:: 1. Placenta and umbilical cord 2. Bilateral fallopian tubes Complications:: None
--- NOTE | 2024-10-23 19:56 | EXP.ANES.I ---
[facility] Anesthesia Record Part I Anesthesia Record I Intake, IV Amount: 1,500 Hydration: Adequate Estimated blood loss (mL): 700 Urine output (mL): 200 Blood Products used (#): none Blood Pressure: 102/50 SaO2: 97 Pulse Rate: 124 Airway Patency: Patent Respiratory Rate: 14 Temperature: 97.0 F Patient is:: Awake and Stable Stable to PACU at:: 19:47
[2024-10-23] MEDS: ACETAMINOPHEN 500MG TAB 1000 MG PO (20:49)
[2024-10-23] MEDS: OXYCODONE 5MG IMMEDIATE RELEASE TABLET PO (22:59)
[2024-10-24] MEDS: WITCH HAZEL 40 PADS/BOX 1 EACH TP (00:31)
[2024-10-24] MEDS: ACETAMINOPHEN 500MG TAB 1000 MG PO ×4 (02:29→18:58)
[2024-10-24] MEDS: CEFAZOLIN SODIUM 2 GM in 0.9 % SODIUM CHLORIDE 100 ML IV ×2 (02:30→09:29)
[2024-10-24] MEDS: OXYCODONE 5MG IMMEDIATE RELEASE TABLET PO ×2 (03:17→07:45)
[2024-10-24] MEDS: SENNA 8.6MG TABLET 8.6 MG PO ×2 (05:19→18:59)
[2024-10-24 05:38] VITALS: BP 97/56; PULSE 86; RESP 18; TEMP 36.9; O2SAT 97
[2024-10-24 06:04] LABS: Basophils % 0.2 % (0.1-2.0); Hematocrit 26.5 % (37.0-47.0); Immature Granulocytes # 0.18 10^3uL; Immature Granulocytes % 1.1 %; Lymphocytes # 1.8 K/mm3 (0.7-4.5); Lymphocytes % 10.3 % (10-50); Mean Corpuscular HGB Conc 32.1 g/dL (31.8-35.4); Mean Corpuscular Hemoglobin 26.2 pg (27.0-31.2); Mean Corpuscular Volume 81.5 fl (81-99); Mean Platelet Volume 11.6 fl (7.4-10.4); Monocytes # 1.3 K/mm3 (0.1-1.0); Monocytes % 7.7 % (1.7-9.3); Neutrophils # 13.8 K/mm3 (1.8-7.8); Neutrophils % 80.7 % (37.0-80.0); Nucleated Red Blood Cells # 0 10^3/uL; Nucleated Red Blood Cells % 0 %; Platelet Count 183 K/mm3 (142-424); Red Blood Count 3.25 M/mm3 (4.20-5.40); Red Cell Distribution Width 15.2 % (11.5-17.5); Red Cell Distribution Width-SD 45.4 fL; White Blood Count 17.1 K/mm3 (4.8-10.8)
[2024-10-24 06:31] LABS: Hemoglobin 8.7 g/dL (12.2-16.2)
[2024-10-24] MEDS: KETOROLAC 30MG/ML VIAL 30 MG IV ×2 (07:45→14:06)
--- NOTE | 2024-10-24 08:05 | EXP.ANES.II ---
[facility] Anesthesia Record Part II Anesthesia Record Part II Discharge Time: 20:17 Destination: Obstetric PACU nurse assessment reviewed?: Yes Patient Condition:: Good Anesthesia Complications:: None Swallowing reflex intact?: Yes Airway Patency: Patent Cyanosis?: No Blood Pressure: 97/54 SaO2: 100 Respiratory Rate: 16 Pulse Rate: 86 Temperature: 98.1 F Mental Status: Alert & Oriented Pain level:: 0 Nausea and/or vomitting:: None Intake, IV Amount: 0 Hydration: Adequate
[2024-10-24 08:06] VITALS: BP 97/54; PULSE 86; RESP 16; TEMP 36.7; O2SAT 100
--- NOTE | 2024-10-24 10:59 | SW/DCPLANNER ---
Addendum entered by Jackie Clearmont 10/30/24 07:08: Infant cord screen is negative. Addendum entered by [facility] 10/24/24 16:07: Per Central Intake this case did not meet criteria for investigation. Addendum entered by [facility] 10/24/24 13:47: Central Intake ID# [id number]. Original Note: I received a consult for this patient regarding positive UDS in . Patient tested positive for THC on the following dates: 04/30/24, 05/04/24, 06/26/24, 08/18/24, 10/09/24. Patient tested positive for amphetamines on 08/18/24. Patient stated that she is prescribed Adderall by Madeline Almonte (old prescription). Patient and infant were negative at delivery. Patient admits to THC use during due to nausea and constipation. Patient also stated that last THC use was in July. Patient delivered female (Celina Arias) on 10/23/2024. Infant's father was present at bedside Sam Arias 06/07/92. This is patient and Sam second child patient's 10th child. Patient, Sam, infant and nine other children will reside at [address] [place] [address] in [place] [address]. Patient's contact number is [phone]. Patient is not interested in [place] at this time. PED MD will be Dr Lino and patient confirmed she will have transportation to all follow up appointments. Patient stated that she has the following items at home: crib, car seat, clothing, diapers and will be breast feeding. Per OB staff patient is appropriate w/ . Patient is expected to discharge 10/26/2024 pending no setbacks. Due to positive drug screens during I will make a report to Central Intake.
--- NOTE | 2024-10-24 11:14 | P.PN_ITS ---
Subjective *Date: 10/24/24 *Time: 11:14 Interval history: POD # 1 s/p PLTCS and BS Resting comfortably in bed. Pain somewhat controlled. Breast feeding. Lochia is appropriate. Voiding without difficulty and passing flatus. She admits she is afraid to have a BM. Tolerating regular diet. Denies fever/chills, chest pain and shortness of breath. No headaches, vision changes, lightheadedness/dizziness. She admits to lower extremity swelling. No calf pain. Ambulating well ad fannie. Medical Exam Vital signs and Labs for Last 24 Hours: Vital Signs Temp Pulse Pulse Resp BP BP Pulse Ox 10/24/24 08:06 16 10/24/24 05:38 98.4 F 86 18 97/56 L 97 10/23/24 20:28 98.3 F 87 16 97/50 L 100 10/23/24 20:17 98.1 F 86 16 97/54 L 100 10/23/24 20:07 98.1 F 85 16 93/50 L 100 10/23/24 20:00 97.0 F L 124 H 14 102/50 L 10/23/24 19:57 98.1 F 89 16 89/53 L 100 10/23/24 19:47 98.1 F 96 H 16 102/50 L 100 10/23/24 17:09 98.2 F 108 H 19 97/51 L 98 O2 Del Method 10/24/24 08:06 10/24/24 05:38 Room Air 10/23/24 20:28 Room Air 10/23/24 20:17 Room Air 10/23/24 20:07 Room Air 10/23/24 20:00 10/23/24 19:57 Room Air 10/23/24 19:47 Room Air 10/23/24 17:09 Room Air Intake and Output 10/23/24 10/24/24 10/24/24 23:59 07:59 15:59 Intake Total 1500 / 1500 0 / 0 Output Total 2500 / 2500 450 / 450 Balance -1000 / -1000 -450 / -450 0 / -450 Intake: Intake, Total IV Amount 1500 / 1500 0 / 0 Output: Output, Urine Amount 450 / 450 Output, Urine Amount (Catheter) 2500 / 2500 Ha 2500 / 2500 Other: Number of Voids 1 Laboratory Results - last 24 hr 10/23/24 05:52: RPR w/Rflx to Titer Nonreactive, Blood Type O Positive, Antibody Screen Negative, Crossmatch ([facility]) See Detail 10/23/24 16:16: Sodium 134 L, Potassium 3.5, Chloride 109 H, Carbon Dioxide 21 L , Anion Gap 7.5, BUN 7, Creatinine 0.40 L, Estimated Creat Clear 291, Estimated GFR 183, Est GFR ( Amer) 221, Glucose 119 H, Calcium 8.3 L, Total Bilirubin 0.1 L, AST 19, ALT 15, Alkaline Phosphatase 118, Total Protein 5.7 L, Albumin 2.9 L, Globulin 2.8, Albumin/Globulin Ratio 1.0 L 10/24/24 05:47: WBC 17.1 H D, RBC 3.25 L, Hgb 8.7 L D, Hct 26.5 L, MCV 81.5, MCH 26.2 L, MCHC 32.1, RDW 15.2, Plt Count 183, MPV 11.6 H, Neut % (Auto) 80.7 H, Lymph % (Auto) 10.3, [place] % (Auto) 7.7, Eos % (Auto) 0.0 L, Baso % (Auto) 0.2, Neut # (Auto) 13.8 H, Lymph # (Auto) 1.8, [place]dwell # (Auto) 1.3 H, Eos # (Auto) 0.0, Baso # (Auto) 0.0 I & O for Labs for Last 24 Hours: Intake & Output 10/21/24 10/22/24 10/23/24 10/24/24 23:59 23:59 23:59 23:59 Intake Total 1500 / 1500 0 / 0 Output Total 2500 / 2500 450 / 450 Balance -1000 / -1000 -450 / -450 Weight 205 lb Head: Present atraumatic and normocephalic ENT: Present normal exam Neck: Present normal inspection and full ROM Respiratory: Present CTA bilaterally and normal respiratory effort Cardiac: Present Reg Rate and Rhythm GI: Present soft, tenderness (appropriate postoperative tenderness to palpation) and normal bowel sounds; Absent distention or guarding Rectal (female): Present deferred (female): Present deferred Extremities: Present full ROM and edema (+2 bilateral lower extremity edema); Absent calf tenderness Neuro: Present alert, awake and moves all extremities Assessment and Plan *Assessment and plan (1) S/P : Status: Acute Category: Surgical Code(s): Z98.891 - History of uterine scar from previous surgery (2) Failure to progress in labor: Status: Acute Category: Medical Code(s): O62.2 - Other uterine inertia (3) Encounter for elective induction of labor: Status: Acute Category: Medical Code(s): Z34.90 - Encounter for supervision of normal , unspecified, unspecified trimester (4) Request for sterilization: Status: Acute Category: Medical Code(s): Z30.2 - Encounter for sterilization (5) Grand multipara: Status: Acute Category: Medical Code(s): Z64.1 - Problems related to multiparity (6) Antiphospholipid antibody syndrome: Status: Acute Category: Medical Code(s): D68.61 - Antiphospholipid syndrome (7) Depression affecting : Status: Acute Category: Medical Code(s): O99.340 - Other mental disorders complicating , unspecified trimester; F32.A - Depression, unspecified (8) Borderline personality disorder: Status: Acute Category: Medical Code(s): F60.3 - Borderline personality disorder (9) ADHD: Status: Acute Qualifiers: Attention deficit-hyperactivity disorder type: unspecified Qualified Code(s): F90.9 - Attention-deficit hyperactivity disorder, unspecified type Category: Medical Code(s): F90.9 - Attention-deficit hyperactivity disorder, unspecified type (10) Acute blood loss anemia: Status: Acute Category: Medical Code(s): D62 - Acute posthemorrhagic anemia Plan Continue routine care Encouraged increased ambulation today She is afraid to have a BM. Start Miralax BID AM Hgb 8.7 (10.0 on admission) - Venofer 200 mg IV x 1 dose Start Zurzuvae with dinner tonight. History of depression, ADHD, boderline personality disorder Plan d/c home POD # 2 or POD # 3
[2024-10-24] MEDS: IRON SUCROSE COMPLEX 200 MG in 0.9 % SODIUM CHLORIDE 100 ML 220 MG IV (11:28)
[2024-10-24] MEDS: OXYCODONE 5MG IMMEDIATE RELEASE TABLET 10 MG PO ×2 (11:28→18:58)
[2024-10-24] MEDS: SIMETHICONE 80MG CHEWABLE TABLET 160 MG PO (14:09)
[2024-10-24] MEDS: POLYETHYLENE GLYCOL 3350 17 GM PACKET PO (17:22)
[2024-10-24] MEDS: PRENATAL MULTIVITAMIN W/IRON 1 EACH PO (17:22)
[2024-10-24] MEDS: [UNRECOGNIZED DRUG - OTHER] 2 EACH PO (17:22)
[2024-10-24] MEDS: IBUPROFEN 400 MG TABLET 800 MG PO (18:59)
[2024-10-25] MEDS: ACETAMINOPHEN 500MG TAB 1000 MG PO ×3 (00:46→20:00)
[2024-10-25] MEDS: OXYCODONE 5MG IMMEDIATE RELEASE TABLET 10 MG PO ×4 (00:47→20:01)
[2024-10-25] MEDS: SIMETHICONE 80MG CHEWABLE TABLET 160 MG PO ×2 (00:49→23:46)
[2024-10-25] MEDS: LANOLIN CREAM 40GM TP (04:24)
[2024-10-25] MEDS: IBUPROFEN 400 MG TABLET 800 MG PO ×3 (04:24→23:30)
[2024-10-25] MEDS: POLYETHYLENE GLYCOL 3350 17 GM PACKET PO ×2 (07:43→23:47)
[2024-10-25] MEDS: SENNA 8.6MG TABLET 8.6 MG PO ×2 (07:43→23:46)
--- NOTE | 2024-10-25 10:19 | EXP.ACUTE.PN ---
Subjective *Date: 10/25/24 *Time: 10:19 Interval history: She is doing well this morning. She is eating and drinking and ambulating. She is bottlefeeding. Her lochia is normal. Medical Exam I & O for Labs for Last 24 Hours: Intake & Output 10/22/24 10/23/24 10/24/24 10/25/24 11:59 11:59 11:59 11:59 Intake Total 1500 / 1500 Output Total 2950 / 2950 Balance -1450 / -1450 Weight 205 lb Head: Present normocephalic ENT: Present normal exam Neck: Present normal inspection Respiratory: Present normal respiratory effort; Absent accessory muscle use Assessment and Plan *Assessment and plan (1) S/P : Status: Acute Category: Surgical Code(s): Z98.891 - History of uterine scar from previous surgery (2) Failure to progress in labor: Status: Acute Category: Medical Code(s): O62.2 - Other uterine inertia (3) Request for sterilization: Status: Acute Category: Medical Code(s): Z30.2 - Encounter for sterilization (4) Grand multipara: Status: Acute Category: Medical Code(s): Z64.1 - Problems related to multiparity Plan She is doing very well this morning. She is eating and drinking and ambulating. We will plan to send her home tomorrow.
[2024-10-25] MEDS: diphenhydrAMINE 25MG CAPSULE 25 MG PO (11:15)
[2024-10-25] MEDS: PRENATAL MULTIVITAMIN W/IRON 1 EACH PO (15:33)
[2024-10-25] MEDS: [UNRECOGNIZED DRUG - OTHER] 2 EACH PO (17:23)
[2024-10-25 20:00] VITALS: BP 109/58; PULSE 99; RESP 18; TEMP 36.7; O2SAT 98
[2024-10-26] MEDS: ACETAMINOPHEN 500MG TAB 1000 MG PO ×2 (03:28→09:45)
[2024-10-26 04:00] VITALS: BP 108/69; PULSE 86; RESP 16; TEMP 36.9; O2SAT 99
[2024-10-26] MEDS: IBUPROFEN 400 MG TABLET 800 MG PO (07:49)
--- NOTE | 2024-10-26 09:19 | EXP.DC.SUM ---
General Admission date:: 10/23/24 Discharge date: 10/26/24 HPI HPI HPI: Ms Herrera is a 34 yo presents for scheduled elective induction of labor at 39w1d. complicated by grand multiparity, antiphospholipid antibody syndrome, depression, ADHD, borderline personality disorder. She has history of stillbirth at 35 weeks. She has been taking prophylactic lovenox and fluoxetine 40 mg daily. Last dose of Lovenox was 10/21/24. Limited care. Hospital Course Hospital Course Hospital Course: Ms Herrera is a 34 yo presents for scheduled elective induction of labor at 39w1d. complicated by grand multiparity, antiphospholipid antibody syndrome, depression, ADHD, borderline personality disorder. She has history of stillbirth at 35 weeks. She has been taking prophylactic lovenox and fluoxetine 40 mg daily. Last dose of Lovenox was 10/21/24. Limited care. She underwent induction of labor with Pitocin and amniotomy. 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 Pitocin reached 18 units. Cervix 4/60/-2. Baby's head was not well engaged. heart tones varied between category 1 strip and category 2 strip with intermittent variable decelerations and periods of minimal variability. Decision was made to proceed with primary secondary to failure to progress. Operative findings:: 1. Live female baby, John, weighing 8 lb 8 oz. APGARs 8 (1 min), 9 (5 min) 2. Nuchal cord x 1 3. Grossly normal appearing uterus, bilateral fallopian tubes and ovaries 4. She underwent a bilateral salpingectomy at the time of her . She is discharged home to follow-up with Dr. Goncalves in 2 weeks time. She will continue with her vitamins and iron. She was given the usual instructions with respect to limiting her activity, driving and sexual activity. She was given instructions with respect to wound care. She had an erythematous, pruritic rash on her abdomen and I have given her cortisone cream to use up to 3 times daily. She was given a prescription for Percocet 5/325 number 20 tablets. Her condition on discharge is stable and improved. Exam Data for Last 24 hours Vital signs and Labs for Last 24 Hours: Temp Pulse Resp BP Pulse Ox O2 Del Method 98.4 F 86 16 108/69 L 99 Room Air 10/26/24 04:00 06/05/25 04:00 10/26/24 04:00 10/26/24 04:00 10/26/24 04:00 10/26/24 04:00 Laboratory Results - last 24 hr 10/23/24 05:52: Crossmatch ([facility]) See Detail I & O for Last 24 hours: Intake & Output 10/23/24 10/24/24 10/25/24 10/26/24 11:59 11:59 11:59 11:59 Intake Total 1500 / 1500 Output Total 2950 / 2950 Balance -1450 / -1450 Weight 205 lb Constitutional Constitutional: no acute distress *Routine Neck Exam Neck: Present supple and full ROM *Routine Respiratory Exam Respiratory: Present normal respiratory effort; Absent accessory muscle use *Routine Abdominal Exam Abdominal: Present normoactive bowel sounds and wound; Absent tenderness or distended Comments: She has an itchy erythematous rash on her abdominal wall and we have given her a prescription for hydrocortisone cream to try. Her incision is clean and dry. Results Data Completed and Pending Labs on day of discharge: Labs from last 24 hours 10/23/24 05:52 Crossmatch ([facility]) See Detail DS: Diagnosis Discharge Diagnosis (1) S/P : Status: Acute Code(s): Z98.891 - History of uterine scar from previous surgery (2) Failure to progress in labor: Status: Acute Code(s): O62.2 - Other uterine inertia (3) Request for sterilization: Status: Acute Code(s): Z30.2 - Encounter for sterilization (4) Grand multipara: Status: Acute Code(s): Z64.1 - Problems related to multiparity Meds Home Medications and Allergies Home Medications ?Medication ?Instructions ?Recorded ?Confirmed ?Type vits no.126-ferrous fum 1 tab PO DAILY #90 tabs 05/11/23 10/23/24 Rx 28 mg iron-folic acid 800 mcg tablet (Classic ) pen needle, diabetic 29 gauge x #100 ea 09/04/24 10/23/24 Rx 1/2 (Ultra-Thin II Insulin Pen [place]) zuranolone 25 mg capsule (Zurzuvae) 50 mg (2 x 25 mg) PO DAILY 14 days 10/19/24 10/23/24 Rx #28 caps dextroamphetamine-amphetamine 5 mg 5 mg PO BID 10/23/24 10/23/24 History tablet (Adderall) enoxaparin 40 mg/0.4 mL 40 mg SQ DAILY 10/23/24 10/23/24 History subcutaneous syringe fluoxetine 40 mg capsule (Prozac) 40 mg PO DAILY 10/23/24 10/23/24 History oxycodone-acetaminophen 5 mg-325 1 tab PO Q6H PRN pain #14 tabs 10/26/24 Rx mg tablet polyethylene glycol 3350 17 17 g PO DAILY #510 grams 10/26/24 Rx gram/dose oral powder New Prescriptions to Start Prescriptions: oxycodone-acetaminophen Edis Valdovinos polyethylene glycol 3350 Edis Valdovinos Allergies Allergy/AdvReac Type Severity Reaction Status Date / Time No Known Allergies Allergy Verified 10/19/24 10:31 Discharge Plan Disposition Patient Disposition: Home, Self-Care Condition: Good Discharge Order Discharge Orders: Discharge Order (Routine); Ordered 10/26/24 Ordered By: Edis Valdovinos Follow up Plan Follow up with: Tena Goncalves DO [Staff Physician, [facility]] - 11/07/24 9:15 am Prescriptions/Medication Reconciliation: New oxycodone-acetaminophen 5-325 mg tablet 1 tab PO Q6H PRN (Reason: pain) Qty: 14 0RF polyethylene glycol 3350 17 gram/dose powder 17 g PO DAILY Qty: 510 1RF Continued (DME) pen needle, diabetic [Ultra-Thin II Ins Pen [place]] 29 gauge x 1/2 needle See Rx Instructions .Route Qty: 100 1RF Rx Instructions: As directed Zurzuvae 25 mg capsule 50 mg PO DAILY 14 Days Qty: 28 0RF Rx Instructions: administer with a high fat meal Classic 28 mg iron- 800 mcg tablet 1 tab PO DAILY Qty: 90 2RF fluoxetine [Prozac] 40 mg capsule 40 mg PO DAILY dextroamphetamine-amphetamine [Adderall] 5 mg Tablet 5 mg PO BID Rx Instructions: administer doses at least 4-6 hours apart enoxaparin 40 mg/0.4 mL syringe 40 mg SQ DAILY Problem Reconciliation Problems Reviewed?: Yes Patient Discharge Instructions ACTIVITY: No heavy lifting DIET: continue same diet Patient Instructions: Depression, Hemorrhage, DI for , DI for Pre-eclampsia, [facility] Post Discharge Instructions Print Language: Croatian Providers Primary Care Provider: Provider,Referral Admit Provider: Tena Goncalves Attending Provider: Tena Goncalves
[2024-10-26] MEDS: HYDROCORTISONE 1% CREAM 30GM TUBE TP (09:37)
[2024-10-26] MEDS: POLYETHYLENE GLYCOL 3350 17 GM PACKET PO (09:45)
== END 2024-10-26 11:29 | disposition home or self-care (01) | DRG 784 ==
PROVIDERS: Admitting Provider Obstetrics & Gynecology; Visit Provider Obstetrics & Gynecology
PROC: 0UL70ZZ Occlusion of Bilateral Fallopian Tubes, Open Approach (ICD-10-PCS; CPT 59514; principal; 2024-10-23 18:00)
DX: O99.344 Other mental disorders complicating childbirth (principal); D62 Acute posthemorrhagic anemia; O99.12 Other diseases of the blood and blood-forming organs and certain disorders involving the immune mechanism complicating childbirth; D68.61 Antiphospholipid syndrome; F32.A Depression, unspecified; Z3A.39 39 weeks gestation of pregnancy; Z37.0 Single live birth; F60.3 Borderline personality disorder; F90.9 Attention-deficit hyperactivity disorder, unspecified type; O62.2 Other uterine inertia; O69.81X0 Labor and delivery complicated by cord around neck, without compression, not applicable or unspecified; O90.81 Anemia of the puerperium; Z30.2 Encounter for sterilization; Z87.891 Personal history of nicotine dependence; Z79.01 Long term (current) use of anticoagulants
CPT/HCPCS: 36415; 51702; 59025; 80053; 80307; 81001; 85025; 86592; 86850; 88302; 88307; 94761; G0283; J0666; J1100; J1756; J1885; J2405; J3010; J7120

== ENCOUNTER 2024-11-02 17:08 | Emergency (ER) | payer OTHER, SELFPAY ==
--- OUTSIDE RECORDS SUMMARY | 2019-05-09 06:30 | XMS_ITS | Continuity of Care Document ---
Author Organization [facility] Address [address] [place] [phone] Phone Care Team Providers Care Core Shaper Name Role Phone Maciel Horton Unavailable Unavailable Procedures Procedure Date Screening Crisis Ind Psy Est Bus Hours 16-37 Min D Advance Directives Directive Yes / No Effective Date File Name No Information Encounters Encounter Description Practice Location Reason(s) For Visit Diagnoses Date Provider Providers Copied on Encounter [facility], [address] [place] [address], [id number], tel:[phone] [place] [address] [address] [place] [address], [id number], . tel:[phone] Crisis Ind Psy Est Bus Hours 16-37 Min [facility], [address] [place] [address], [id number], tel:[phone] [facility] No Information [address] [place] [address], [id number], . tel:[phone] Family History Family Member Type Diagnosis Age At Onset No Information Payers Payer name Insurance type Covered alliance party ID Authoriza tion(s) No Information Social History Type Description Quantity Date Captured Comments Sex Female Smoking Status No Information Chief Complaint And Reason For Visit No Information Reason For Referral Reason For Referral No Information History Of Present Illness Encounter Date Complaint History Of Prese nt Illness No Information Functional Status Date Functional Assessmen t No Information Instructions Date Instruction Additional Infor mation No Information Assessments Type Assessment Date No Information Patient Care Teams Name Effective Dates (start - stop) Status Members No Information
--- OUTSIDE RECORDS SUMMARY | 2020-06-28 09:30 | XMS_ITS | Continuity of Care Document ---
Author Organization [facility] Address [address] [place] [address] Phone Care Team Providers Care Pastry Cook Name Role Phone Shady Sosa DDS Unavailable Unavailable Allergies, Adverse Reactions, Alerts Substance Reaction Status Criticality silicone burning sensation Active No Informa tion Medications Medication Instructions Dosage Effective Dates (start - stop) Status Comments PROZAC (unknown strength) take 2 capsule by oral route every day Not Available - Active Procedures Procedure Date Health History Update LIMITED ORAL EVAL:PROBLEM FOCUSED PANORAMIC FILM URINE CULTURE OB PROFILE III HIV 1 ANTIGEN W/HIV 1&2 ANTIBODIES Drug Screen;Class A; Sngl Method 2016 METABOLIC PANEL: CHEM 19 URIC ACID OFFICE VISIT/EST LEVEL I OB Anatomy >/=14 WKS, SINGLE FETUS URINE /COLOR COMPAR. 7 OFFICE VISIT/EST LEVEL III Medication Reviewed OFFICE VISIT/EST LEVEL III OFFICE VISIT/EST LEVEL III OFFICE VISIT/EST LEVEL III OFFICE VISIT/EST LEVEL III Health History Update PERIODIC ORAL EVAL:ESTABLISHED 16 BITEWIN FILMS STREP CULTURE Urine Dip Only OFFICE VISIT/EST LEVEL III ULTRASOUND/GROWTH <14 WKS BBP W/O NST Urine Dip Only OFFICE VISIT/EST LEVEL III OB US >/=14 WKS, SINGLE FETUS 6 Urine Dip Only OFFICE VISIT/EST LEVEL III Urine Dip Only Drug Screen;Class A; Sngl Method 2015 IRINEO BY DNA PROBE CHLAMYDIA/DIRECT PROBE OFFICE VISIT/EST LEVEL IV OFFICE VISIT/EST LEVEL III OFFICE VISIT/EST LEVEL III OB US >/=14 WKS, SINGLE FETUS 5 Notification Of 2nd Trimester [place] OFFICE VISIT/EST LEVEL III URINE CULTURE URINE DIP Urine Dip Only Drug Screen;Class A; Sngl Method 2014 URINE CULTURE HIV-1 & HIV-2,/SINGLE OB PROFILE III OFFICE VISIT/EST LEVEL IV ALPHA-FETOPROTEIN, AMNIO.FLUID 15 Cyst.Fib.Screening URINE /COLOR COMPAR. 5 OFFICE VISIT/EST LEVEL III URINE /COLOR COMPAR. 5 OFFICE VISIT/EST LEVEL III SERUM HCG QUANT OFFICE VISIT/EST LEVEL III OFFICE VISIT/EST LEVEL III OFFICE VISIT/EST LEVEL III SOLUMEDROL 125 MG THER/PROPH/DIAG INJ, SC/IM URINE /COLOR COMPAR. 4 Annual Logging Shovel Operator Exam/Est Pt (CAID Only) OFFICE VISIT/EST LEVEL III OFFICE VISIT/EST LEVEL III OFFICE VISIT/EST LEVEL III QUICK STREP CHLAMYDIA/DNA PROBE GGDNA URINE /COLOR COMPAR. 4 URINE DIP Thin Prep Pap Smear Annual Logging Shovel Operator Exam/Est Pt (CAID Only) OFFICE VISIT/EST LEVEL III PPD INTRADERMAL OFFICE VISIT/EST LEVEL III OFFICE VISIT/EST LEVEL III OFFICE VISIT/EST LEVEL III FLU VACCINE, 3 YRS & > (C) IMMUNIZATION ADM/SNGL OFFICE VISIT/EST LEVEL IV OFFICE VISIT/EST LEVEL III OFFICE VISIT/EST LEVEL III CHEM 8 CBC (NO DIFF)&PLATELET CT BETA HCG/QUAL.-PREG. Depo Provera, 1mg, Inj Pfizer 3 Injection/Medication OFFICE VISIT/EST LEVEL III Depo Provera, 1mg, Inj Pfizer 3 Injection/Medication OFFICE VISIT/EST LEVEL III OFFICE VISIT/EST LEVEL III OFFICE VISIT/EST LEVEL III Depo Provera, 1mg, Inj Pfizer 3 Injection/Medication URINE /COLOR COMPAR. 3 RESIN-BSD COMP:1 SURFACE, POST 13 RESIN-BSD COMP:1 SURFACE, POST 13 PERIODIC ORAL EVAL:ESTABLISHED 13 ADULT PROPHYLAXIS(Over 14) Health History Update OFFICE VISIT/EST LEVEL III RESIN-BSD COMP:1 SURFACE, POST 12 COMPR ORAL EVAL:NEW/EST BITEWIN FILMS PANORAMIC FILM Health History Update OXYGEN SATURATION OFFICE VISIT/EST LEVEL IV OXYGEN SATURATION OFFICE VISIT/NEW LEVEL II Advance Directives Directive Yes / No Effective Date File Name No Information Encounters Encounter Description Practice Location Reason(s) For Visit Diagnoses Date Provider Providers Copied on Encounter [facility], [address] [facility] [address], [place], [place], [id number], [place] tel:[phone] [facility] Other dental procedure status 1 Sosa JOSE Shady. [address] [place], [address], [place]. tel:[phone] OFFICE VISIT/EST LEVEL I [facility], [address] [facility] [address], [place], [place], [id number], [place] tel:[phone] [place] landscape designer New OB ED Visit (chief complaint) Supervision of high risk in first trimesterEnco unter for screening for HIV 7 Luiz Hernandez. [address] [facility], [address], [place], [place], [id number], [place]. tel:[phone] [facility], [address] [place] [address] [address], [place], [place], [id number], [place] tel:[phone] [place] [employer] No Information 7 Winston Moy. [address] [facility] [address], [place], [place], [id number], [place]. tel:[phone] OFFICE VISIT/EST LEVEL III [facility], [address] [facility] [address], [place], [place], [id number], [place] tel:[phone] [place] [employer] amenorrhea (chief complaint)+UP T (chief complaint) Secondary amenorrheaIns ufficient care in second trimesterHigh -risk in second trimesterBody mass index (BMI) 29.0-29.9, adult 7 Winston Moy. [address] [facility] [address], [place], [place], [id number], [place]. tel:[phone] OFFICE VISIT/EST LEVEL III [facility], [address] [facility] [address], [place], [place], [id number], [place] tel:[phone] [facility] Sinus symptoms (acute) (chief complaint) Acute non-recurrent maxillary sinusitis 7 Nitin CFNP Jas. [address] [place], [place], [id number], [place]. tel:[phone] OFFICE VISIT/EST LEVEL III [facility], [address] [place] [address] [address], [place], [place], [id number], [place] tel:[phone] [facility] Rash (chief complaint) Pruritic erythematous rash 7 Nitin CFNP Jas. [address] [place], [place], [id number], [place]. tel:[phone] OFFICE VISIT/EST LEVEL III [facility], [address] [place] [address] 200, [place], [place], [id number], [place] tel:[phone] [facility] rash (chief complaint) Ringworm of body 7 Nitin CFNP Jas. [address] [place], [place], [id number], [place]. tel:[phone] OFFICE VISIT/EST LEVEL III [facility], [address] [place] [address] [address], [place], [place], [id number], [place] tel:[phone] [facility] Cough (chief complaint) Acute bronchitis, unspecified organismTobac co use 6 Nitin CFNP Jas. [address] [place], [place], [id number], [place]. tel:[phone] [facility], [address] [place] [address] Suite [facility], [place], [place], [id number], [place] tel:[phone] [facility] Encounter for dental exam and cleaning w/o abnormal findingsOther dental procedure status 6 Sosa DDS Shady. [address] [place], [address], [place]. tel:[phone] OFFICE VISIT/EST LEVEL III [facility], [address] [place] [address] [address], [place], [place], [id number], [place] tel:[phone] [place] landscape designer routine (chief complaint) Encounter for supervision of other normal , 3rd trimesterEnco unter for supervision of other normal , 3rd trimesterEnco unter for supervision of other normal , 3rd trimesterEnco unter for supervision of high risk in third trimester, antepartum Jul- 6 No Information [facility], [address] [place] [address] Suite [facility], [place], [place], [id number], [place] tel:[phone] [place] landscape designer No Information 6 Daylin Gotti. [address], [place], [place], [id number], [place]. tel:[phone] [facility], [address] [place] [address] [place] [address], [id number], [place] tel:[phone] [place] landscape designer Two vessel cord 6 No Information OFFICE VISIT/EST LEVEL III [address] [place] [address], [id number], [place] tel:[phone] [place] landscape designer routine (chief complaint) Encounter for supervision of other normal , 3rd trimesterTwo vessel umbilical cord 6 No Information [facility], [address] [place] [address] Suite [facility], [place], [place], [id number], [place] tel:[phone] [place] landscape designer Insufficient care, third trimester 6 No Information [address] [place] [address], [id number], [place] tel:[phone] [place] landscape designer No Information 6 Daylin Gotti. [address], [place], [place], [id number], [place]. tel:[phone] OFFICE VISIT/EST LEVEL III [address], [id number], [place] tel:[phone] [place] landscape designer Encounter for supervision of other normal , 3rd trimesterEnco unter for supervision of other normal , 3rd trimester 6 No Information OFFICE VISIT/EST LEVEL IV [facility], [address], [id number], [place] tel:[phone] [place] landscape designer routine (chief complaint) Encounter for supervision of other normal , 3rd trimesterEnco unter for screening for malignant neoplasm of cervixEncount er for STD screeningEnco unter for supervision of other normal , 3rd trimesterEnco unter for screening for oth infec/parastc diseasesEchog enic intracardiac focus of fetus on ultrasound 6 No Information OFFICE VISIT/EST LEVEL [facility], [address] [place] [address], [place], [id number], [place] [phone] [facility] cough (chief complaint) Viral URI with coughOther viral agents as the cause of diseases classified elsewhereMild persistent asthma without complication2 8 weeks gestation of 6 Nitin CFNP Jas. [address] [place], [place], [id number], [place]. tel:[phone] OFFICE VISIT/EST LEVEL III [facility], [address] [place] [address], [id number], [place] tel:[phone] [facility] Cough (chief complaint) Acute bronchitis, unspecified organismMild intermittent asthma without complicationP regnancy 5 Nitin CFNP Jas. [address] [place], [place], [id number], [place]. tel:[phone] [facility], [address] [place] [address], [id number], tel:[phone] [place] landscape designer No Information 5 Daylin Gotti. [address] [facility], [place], [place], [id number], [place]. tel:[phone] [facility], [address] [place] [address], [id number], tel:[phone] [place] landscape designer No Information 5 Daylin Gotti. [address], [place], [place], [id number], [place]. tel:[phone] OFFICE VISIT/EST LEVEL [address] [facility], [address] [facility] [address], [place], [place], [id number], [place] tel:[phone] [facility] UTI (chief complaint) No Information Sep-3 0- 5 Nitin CFNP Jas. [address] [place], [place], [id number], [place]. tel:[phone] OFFICE VISIT/EST LEVEL IV [facility], [address] [facility] [address], [place], [place], [id number], [place] tel:[phone] [place] landscape designer Education Visit (chief complaint) No Information Jan-2 5 Daylin Gotti. [address], [place], [place], [id number], [place]. tel:[phone] OFFICE VISIT/EST LEVEL III [facility], [address] [facility] [address], [place], [place], [id number], [place] tel:[phone] [place] landscape designer amenorrhea (chief complaint) No Information Jan- 5 Luiz Hernandez. [address] [facility], [place], [place], [id number], [place]. tel:[phone] OFFICE VISIT/EST LEVEL III [facility], [address] [facility] [address], [place], [place], [id number], [place] tel:[phone] [facility] rash (chief complaint)pos itive preg test (chief complaint) No Information Dec- 5 Nitin CFNP Jas. [address] [place], [place], [id number], [place]. tel:[phone] OFFICE VISIT/EST LEVEL III [facility], [address] [facility] [address], [place], [place], [id number], [place] tel:[phone] [facility] Musculoskelet al pain (chief complaint) No Information Aug- 5 Nitin CFNP Jas. [address] [place], [place], [id number], [place]. tel:[phone] OFFICE VISIT/EST LEVEL [address] [facility], [address] [facility] [address], [place], [place], [id number], [place] tel:[phone] [facility] test results (chief complaint) No Information 4 Nitin CFNP Jas. [address] [place], [place], [id number], [place]. tel:[phone] OFFICE VISIT/EST LEVEL III [facility], [address] [facility] [address], [place], [place], [id number], [place] tel:[phone] [facility] Cough (chief complaint) No Information 4 Nitin CFNP Jas. [address] [place], [place], [id number], [place]. tel:[phone] [facility], [address] [facility] [address], [place], [place], [address], [place] tel:[phone] [facility] no menses x 4 months (chief complaint) No Information 4 Nitin CFNP Jas. [address] [place], [place], [id number], [place]. tel:[phone] OFFICE VISIT/EST LEVEL III [facility], [address] [facility] [address], [place], [place], [id number], [place] tel:[phone] [facility] er F/U (chief complaint) No Information 4 Nitin CFNP Jas. [address] [place], [place], [id number], [place]. tel:[phone] OFFICE VISIT/EST LEVEL III [facility], [address] [facility] [address], [place], [place], [id number], [place] tel:[phone] [facility] attention problems (chief complaint) No Information 4 Nitin CFNP Jas. [address] [place], [place], [id number], [place]. tel:[phone] OFFICE VISIT/EST LEVEL III [facility], [address] [place] [address] [address], [place], [place], [id number], [place] tel:[phone] [facility] sore throat (chief complaint)con stipation (chief complaint) No Information - 4 Nitin CFNP Jas. [address] [place], [place], [id number], [place]. tel:[phone] [facility], [address] [facility] [address], [place], [place], [id number], [place] tel:[phone] [facility] PAP test (chief complaint)ppd read (chief complaint) No Information 4 Nitin CFNP Jas. [address] [place], [place], [id number], [place]. tel:[phone] OFFICE VISIT/EST LEVEL III [facility], [address] [place] [address], [place], [place], [id number], [place] tel:[phone] [facility] work physical (chief complaint)calderon tom (chief complaint) No Information 4 Nitin CFNP Jas[address] [place], [place], [id number], [place]. tel:[phone] OFFICE VISIT/EST LEVEL III [facility], [address] [place] [address], [place], [place], [id number], [place] tel:[phone] [facility] depression (chief complaint) No Information 4 Nitin CFNP Jas. [address] [place], [place], [id number], [place]. tel:[phone] OFFICE VISIT/EST LEVEL III [facility], [address] [place] [address] 200, [place], [id number], [place] tel:[phone] [facility] depression (chief complaint) No Information 4 Nitin CFNP Jas. [address] [place], [place], [id number], [place]. tel:[phone] OFFICE VISIT/EST LEVEL III [facility], [address] [place] [address] 200, [place], [place], [id number], [place] tel:[phone] [facility] depression (chief complaint) No Information Apr-0 - 3 Nitin CFNP Jas. [address] [place], [place], [id number], [place]. tel:[phone] [facility], [address] [facility] [address], [place], [place], [address], [place] tel:[phone] [facility] flu shot (chief complaint) No Information 0 3 Nitin CFNP Jas. [address] [place], [place], [id number], [place]. tel:[phone] OFFICE VISIT/EST LEVEL IV [facility], [address] [place] [address], [place], [place], [id number], [place] tel:[phone] [place] landscape designer consult (chief complaint) No Information Sep-2 3 Vianca Garber. [address] [address], [place], [place], [id number], [place]. tel:[phone] OFFICE VISIT/EST LEVEL III [facility], [address] [place] [address] Suite [facility], [place], [place], [id number], [place] tel:[phone] [facility] sinus symptoms (acute) (chief complaint) No Information Jan-2 3 Nitin CFNP Jas. [address] [place], [place], [id number], [place]. tel:[phone] OFFICE VISIT/EST LEVEL III [facility], [address] [place] [address] Suite [facility], [place], [place], [id number], [place] tel:[phone] [facility] depo (chief complaint) No Information Sep-0 3 Nitin CFNP Jas[address] [place], [place], [id number], [place]. tel:[phone] OFFICE VISIT/EST LEVEL III [facility], [address] [place] [address] Suite [facility], [place], [place], [id number], [place] tel:[phone] [facility] cough (chief complaint) No Information Dec-0 3 Kwabena Abdi. [address] [place] [address], [place]. tel:[phone] OFFICE VISIT/EST LEVEL [address] [facility], [address] [facility] [address], [place], [place], [id number], [place] tel:[phone] [facility] depo (chief complaint)rec heck throat (chief complaint) No Information 3 Nitin CFNP Jas. [address] [place], [place], [id number], [place]. tel:[phone] OFFICE VISIT/EST LEVEL III [facility], [address] [place] [address], [place], [id number], [place] tel:[phone] [facility] earache (chief complaint) No Information 3 Nitin CFNP Jas. [address] [place], [place], [id number], [place]. tel:[phone] OFFICE VISIT/EST LEVEL III [facility], [address] [place] [address], [place], [place], [id number], [place] tel:[phone] [facility] control consult (chief complaint)[place] ction to Nicotine Patch (chief complaint) No Information 3 Nitin CFNP Jas. [address] [place], [place], [id number], [place]. tel:[phone] [facility], [address] [place] [address], [place], [id number], [place] tel:[phone] [facility] No Information 3 Emiliano Gonzalez. [address] [place], [place], [id number], [place]. tel:[phone] [facility], [address] [place] [address], [place], [id number], [place] tel:[phone] [facility] No Information 3 Emiliano Gonzalez. [address] [place], [place], [id number], [place]. tel:[phone] OFFICE VISIT/EST LEVEL III [facility], [address] [place] [address] Road [address], [place], [place], [id number], [place] tel:[phone] [facility] cough (chief complaint) No Information 2 Nitin MI Jas. [address], [place], [place], [id number], . tel:[phone] [facility], [address] [facility] [address], [place], [place], [id number], [place] tel:[phone] [facility] No Information 2 Emiliano Gonzalez. [address] [place], [place], [id number], [place]. tel:[phone] [facility], [address] [facility] [address], [place], [place], [address], [place] tel:[phone] [facility] No Information 2 Emiliano Gonzalez. [address] [place], [place], [id number], [place]. tel:[phone] OFFICE VISIT/EST LEVEL IV [facility], [address] [place] [address] 200, [place], [place], [id number], [place] tel:[phone] [facility] cough (chief complaint) No Information 2 No Information OFFICE VISIT/NEW LEVEL II [facility], [address] [place] [address] 200, [place], [place], [id number], [place] tel:[phone] [facility] No Information 1 No Information Family History Family Member Type Diagnosis Age At Onset Problem (finding) Family history of breas t cancer Problem (finding) Family history of Diabe anahy mellitus Mother Problem (finding) schizophrenia Immunizations Vaccine Date Status Comments Flu 3yrs or older, KELSEA administered [facility] e: New Immunization Record Payers Payer name Insurance type Covered libertarian ID Authorloyd benz(s) [facility] [id number] D [facility] [id number] Social History Type Description Quantity Date Captured Comments Alcohol Use Details Unknown Caffeine Use Details Unknown Tobacco Use Status No Information Smoking Status Former smoker Sex Female Yes - Patient is cur rently Sexual Orientation Choose not to disclose Gender Identity Female Vital Signs Date / Time: Height Weight BMI Pulse Rate Blood Pressure Temperature Respiratory Rate Body Surface Area Head Circumference Head Circ. Percentile Wt./Pete. Percentile BMI percentile Pulse Ox Inhaled Ox 1:44 PM 80 /min 129/79 mm[Hg] Chief Complaint And Reason For Visit No Information Reason For Referral Reason For Referral No Information Plan Of Treatment Date Type Action Status Goal Breast exam. Due on due Goal Pap/HPV testing. Due on due Goal Tdap. Due on due Goal Depression screening. Due on due Goal Fluzone Quad Syringe. Due on due Goal HIV Screen. Due on due Goal Influenza vaccine. Due on due Goal Tdap. Due on due Goal PPD (TST). Due on due Goal Breast exam. Due on 017 due Goal Tdap. Due on due Goal Breast exam. Due on 017 due Goal PPD (TST). Due on due Goal PPD (TST). Due on due Goal Tdap. Due on due Goal Breast exam. Due on due Goal Tdap. Due on due Goal PPD (TST). Due on due Goal Breast exam. Due on due Goal PPD (TST). Due on 4 due Goal Breast exam. Due on due Goal Tdap. Due on due Goal Breast exam. Due on 017 due Goal H&P. Due on due Goal Td vaccine. Due on 17 due Goal PPD (TST). Due on due Goal Tdap. Due on due Goal ASSISTANT INVENTORY MANAGER exam. Due on due Goal Diabetes Screening. Due on due Goal Td vaccine. Due on 16 due Goal ASSISTANT INVENTORY MANAGER exam. Due on due Goal H&P. Due on due Goal PPD (TST). Due on 4 due Goal Tdap. Due on due Goal Breast exam. Due on 016 due Goal Diabetes Screening. Due on due Goal Breast exam. Due on 016 due Goal Td vaccine. Due on 16 due Goal PPD (TST). Due on 4 due Goal Tdap. Due on due Goal HPV (1st). Due on 6 due Goal Diabetes Screening. Due on due Goal H&P. Due on due Goal ASSISTANT INVENTORY MANAGER exam. Due on due Goal Diabetes Screening. Due on due Goal H&P. Due on due Goal Breast exam. Due on 016 due Goal Tdap. Due on due Goal HPV (1st). Due on 6 due Goal ASSISTANT INVENTORY MANAGER exam. Due on due Goal PPD (TST). Due on 4 due Goal Td vaccine. Due on 16 due Goal Breast exam. Due on 016 due Goal PPD (TST). Due on 4 due Goal H&P. Due on due Goal Tdap. Due on due Goal Td vaccine. Due on 16 due Goal ASSISTANT INVENTORY MANAGER exam. Due on due Goal HPV (1st). Due on 6 due Goal Diabetes Screening. Due on due Goal Td vaccine. Due on 16 due Goal Tdap. Due on due Goal ASSISTANT INVENTORY MANAGER exam. Due on due Goal Breast exam. Due on 016 due Goal HPV (1st). Due on 6 due Goal H&P. Due on due Goal PPD (TST). Due on 4 due Goal ASSISTANT INVENTORY MANAGER exam. Due on due Goal H&P. Due on due Goal Tdap. Due on due Goal Td vaccine. Due on 16 due Goal PPD (TST). Due on 4 due Goal HPV (1st). Due on 6 due Goal Breast exam. Due on 016 due Goal Tdap. Due on due Goal PPD (TST). Due on 4 due Goal Td vaccine. Due on 16 due Goal HPV (1st). Due on 6 due Goal Breast exam. Due on 016 due Goal H&P. Due on due Goal ASSISTANT INVENTORY MANAGER exam. Due on due Goal H&P. Due on due Goal Td vaccine. Due on 16 due Goal Tdap. Due on due Goal Breast exam. Due on 016 due Goal PPD (TST). Due on 4 due Goal ASSISTANT INVENTORY MANAGER exam. Due on due Goal HPV (1st). Due on 6 due Goal PPD (TST). Due on 4 due Goal HPV (1st). Due on 5 due Goal Breast exam. Due on 015 due Goal H&P. Due on due Goal Td vaccine. Due on 15 due Goal Tdap. Due on due Goal ASSISTANT INVENTORY MANAGER exam. Due on due Goal Tdap. Due on due Goal HPV (1st). Due on 5 due Goal Td vaccine. Due on due Goal H&P. Due on due Goal PPD (TST). Due on due Goal Breast exam. Due on due Goal PPD (TST). Due on due Goal Tdap. Due on due Goal Breast exam. Due on due Goal Td vaccine. Due on due Goal HPV (1st). Due on due Goal H&P. Due on due Goal PPD (TST). Due on due Goal Tdap. Due on due Goal Breast exam. Due on due Goal H&P. Due on due Goal Td vaccine. Due on due Goal HPV (1st). Due on due Goal H&P. Due on due Goal PPD (TST). Due on due Goal Td vaccine. Due on due Goal Tdap. Due on due Goal Breast exam. Due on due Goal HPV (1st). Due on due Goal PPD (TST). Due on due Goal H&P. Due on due Goal Tdap. Due on due Goal Td vaccine. Due on 15 due Goal Breast exam. Due on due Goal HPV (1st). Due on 5 due Goal Td vaccine. Due on 14 due Goal HPV (1st). Due on 4 due Goal H&P. Due on due Goal Tdap. Due on due Goal Breast exam. Due on due Goal PPD (TST). Due on 4 due Goal H&P. Due on due Goal HPV (1st). Due on due Goal Breast exam. Due on 014 due Goal PPD (TST). Due on due Goal Tdap. Due on due Goal Td vaccine. Due on 14 due Goal PPD (TST). Due on 4 due Goal Td vaccine. Due on 14 due Goal HPV (1st). Due on 4 due Goal H&P. Due on due Goal Tdap. Due on due Goal Breast exam. Due on due Goal Breast exam. Due on due Goal PPD (TST). Due on 4 due Goal Td vaccine. Due on 14 due Goal Tdap. Due on due Goal HPV (1st). Due on 4 due Goal H&P. Due on due Goal Td vaccine. Due on 14 due Goal H&P. Due on due Goal Tdap. Due on due Goal Breast exam. Due on 014 due Goal PPD (TST). Due on 4 due Goal HPV (1st). Due on 4 due Goal Td vaccine. Due on 14 due Goal HPV (1st). Due on 4 due Goal Tdap. Due on due Goal H&P. Due on due Goal Tobacco cessation counseling completed Referral Referred To: Babs Gould [id number] [place], [place] [id number] Ordered: Referrals: Babs Gould. Location: [facility]. Evaluate and treat Appointment date/timeframe: 11/26/2016 ordered Referral Ordered: BBP W/O NST 2vc ordered Referral Ordered: BBP W/O NST ordered Referral Ordered: ULTRASOUND/GROWTH <14 WKS ordered Referral Ordered: ULTRASOUND ANATOMY ordered Referral Ordered: OB US < 14 WKS, SINGLE FETUS ordered Referral Ordered: Ultrasound Pelvic- NON OB ordered Referral Ordered: CT SCAN ABDOMEN & PELVIS With CONTRAST ordered History Of Present Illness Encounter Date Complaint History Of Prese nt Illness New OB ED Visit amenorrhea +UPT 26 gran multip a t 18+wks by LMP, 23wks by fundal height, no care, +UPT today. FHT 155. Says was 18mon old and irreg menses so didn't know she was until she got a UTI which was recently treated. H/o PCOS and obesity, no other significant medical issues. Needs u/s dates now, new OB RN visit now. Sinus symptoms (acute) Onset: 2 Days. The severity of the problem is moderate. The problem has worsened. Both sides are affected. Pertinent/initial symptoms include facial pain, facial pressure, sinus congestion, sinus pain and sinus pressure. Associated symptoms include cough, fever, headache, nasal drainage and postnasal drainage. Rash The patient pres ents for Rash. This episode began 6 weeks ago. The symptom(s) are described as severe, worse and occurs continuously. Affected area(s) include both arms. The patient describes the affected area(s) as dry, itchy and red. The symptoms are not associated with contact with chemicals, contact with plants, new perfume, new skin soaps/lotions and rash began before age 2. The symptoms are not relieved by antifungal cream or antihistamines. Associated symptoms include dry skin, erythema (skin) and pruritus. Pertinent negatives include bleeding, cracking, crusting, edema, fatigue, hypopigmentation, myalgia, painful rash, pharyngitis, scaling and urticaria. There are no other household members with similar symptoms. Relevant history positive for history of allergies and history of asthma. Relevant history negative for history of atopic dermatitis. Additional information: pt has been using topical antifungal and benadryl cream itching imroves for about a hour but it seems like its just getting more inflamed . rash The patient pres ents for rash. This episode began 3 weeks ago. The symptom(s) are described as worse. Affected area(s) include both arms. The patient describes the affected area(s) as itchy. The symptoms are not relieved by antifungal cream, antihistamines or topical steroids. Associated symptoms include pruritus. Pertinent negatives include bleeding, cracking, erythema (skin), fatigue, hypopigmentation, myalgia, painful rash, scaling and urticaria. There are no other household members with similar symptoms. Additional information: really itchy. Cough Onset: 10 days a go. The patient describes the cough as dry, hacking and non-productive. It occurs persistently. The problem has become gradually worse. Context: smoker. There are no relieving factors. Associated symptoms include cough, fatigue, post-nasal drainage, rhinorrhea and wheezing. Pertinent negatives include chills, dyspnea, dyspnea on exertion, fever, pleuritic pain, rhinitis and sinus pressure. The patient has a history of allergies and asthma. Additional information: she was at ER 2 days ago and given rescue inhaler and mucinex. routine US Review routine 33wks-1d routine has not been se en w/ our office since 02/05 - ob visit- repeat UDS - pap today add on GC/Chlamydia/Trich cough Onset: 3 days ag o. It occurs persistently. Context: sick family member and smoker. Associated symptoms include cough, fatigue, nasal congestion, post-nasal drainage and rhinitis. Pertinent negatives include chills, dyspnea, fever, sinus pressure and sore throat. The patient has a history of allergies and asthma. Additional information: chest congestion pt is 28 weeks gestation. Cough Onset: 2 weeks a go. The patient describes the cough as hacking and persistent. Context: sick family member and smoke exposure. Associated symptoms include cough, fatigue, post-nasal drainage and rhinorrhea. Pertinent negatives include chills, dyspnea, sinus pressure and sore throat. The patient has a history of allergies and asthma. Additional information: pt states she is out of her inhaler. pt is 22 weeks gestation. UTI Onset: 3 Days. P resenting/Initial symptoms include frequency and lower back pain. Associated symptoms include dysuria and frequency. Pertinent negatives include abdominal pain, fatigue, fever, nausea or rash. Additional information: pt is 16 weeks . Education Visit amenorrhea Last menstrual p eriod was on 10/26/2014. The patient's relevant history is negative for oral contraceptive use. Labs completed to date include urine test. Pertinent negatives include back pain, bleeding between menses, cyclic pelvic pain, difficulty concentrating, difficulty sleeping, nausea, menstrual cramping, pelvic pain or weight loss. Additional information: LMP 615 EDC 08-02-15 POP given to pt; denies vaginal bleeding. positive preg test pt states had 4 positive test at home rash The patient pres ents for rash. Affected area(s) include hand(s) and feet. Additional information: pt states its very itchy. Musculoskeletal pain Onset: 1 da y ago. Location: left ribs. Context: there is no injury. The pain is aggravated by movement. test results Cough Onset: 5 days ag o. The patient describes the cough as hacking and productive. The problem has become gradually worse. Context: known asthmatic, sick family member and smoker. Associated symptoms include cough, fatigue, sinus pressure, sore throat and wheezing. Pertinent negatives include dyspnea, fever and night sweats. The patient has a history of allergies and asthma. no menses x 4 months er F/U Pt states she wa s bite by a dog on Wednesday02/10/14. Went to [facility]. She was given Tdap, abx injection, and two oral abx. attention problems Pt state sshe is on academic probation due to not being able to focus on work. Pt states she has hx of ADHD. also need refill of bc Functional Status Date Functional Assessmen t No Information Instructions Date Instruction Additional Infor mation sexual activity exercise indications for ultrasound influenza vaccine environmental / work hazards HIV and other routine t ests risk factors identif ied by history anticipated course of c are nutrition and weight gain counseling, special diet toxoplasmosis precau tions (cats / raw meat) seat belt use childbirth classes / hospital facilities travel tobacco (ask, advise , assess, assist and arrange) alcohol illicit / recreational drugs use of any medicatio ns (including supplements, vitamins, herbs, OTC drugs) smoking counseling domestic violence Patient instructed o n use of saline sprays. Related to Acute non-recurrent maxillary sinusitis If symptoms do not i mprove in 48-72 hrs, may start antibiotics Related to Acute non-recurrent maxillary sinusitis If symptoms persist or worsen, return to office Related to Acute non-recurrent maxillary sinusitis If symptoms persist or worsen, return to office Related to Pruritic erythematous rash Take medication as directed Rela darrell to Pruritic erythematous rash If worsens, return to office Rel ated to Ringworm of body use medications as directed Rela darrell to Ringworm of body Rest, fluids, tyleno l prn fever or discomfort Related to Acute bronchitis, unspecified organism Take antibiotic until gone Relat ed to Acute bronchitis, unspecified organism If symptoms persist or worsen, return to office Related to Acute bronchitis, unspecified organism Educated that antibi otics are not prescribed for viral infections. Related to Viral URI with cough Rest, fluids, tyleno l prn fever or discomfort Related to Viral URI with cough albuterol neb treatm ents as needed for wheezing Related to Viral URI with cough Rest, fluids, tyleno l prn fever or discomfort Related to Acute bronchitis, unspecified organism Take medications as directed Rel ated to Acute bronchitis, unspecified organism If symptoms persist or worsen, return to office Related to Acute bronchitis, unspecified organism Increase water intak e and decrease caffeinated/carbonated beverages Related to UTI (urinary tract infection) Take antibiotic until gone Relat ed to UTI (urinary tract infection) If symptoms persist or worsen, return to office Related to UTI (urinary tract infection) answered all questions Related t o Supervision of other normal nutrition and weight gain counseling, special diet toxoplasmosis precau tions (cats / raw meat) risk factors identif ied by history anticipated course of c are seat belt use childbirth classes / hospital facilities HIV and other routine t ests sexual activity exercise indications for ultrasound influenza vaccine environmental / work hazards travel tobacco (ask, advise , assess, assist and arrange) alcohol illicit / recreational drugs use of any medicatio ns (including supplements, vitamins, herbs, OTC drugs) smoking counseling domestic violence domestic violence family pl anning / tubal sterilization signs and symptoms of la bor abnormal lab values influenza vaccine selecting a care provide r smoking counseling Early preg. loss, wt . gain, contact numbers, visit sched. d/w pt. FUOB in 4 wks. Related to Absence of menstruation Schedule appt with y our rd lab technician - take daily vitamin - avoid smokingApprox 11 wks with EDC of 3-16. Related to Positive urine test Keep area dry and clean Related to Dyshidrotic dermatitis If symptoms persist or worsen, return to office Related to Dyshidrotic dermatitis Take medication(s) as prescribed Related to Depressive disorder, not elsewhere classified 911 or ER for suicid al/homicidal ideation Related to Depressive disorder, not elsewhere classified Apply warm moist hea t alternating with ice pack to affected area Related to Left-sided chest wall pain Take medications as directed Rel ated to Left-sided chest wall pain Pt interested in Nor plan or Implanon - she will schedule appt with [employer] Related to PCOS (polycystic ovarian syndrome) If symptoms persist or worsen, return to office Related to Acute bronchitis Take medications as directed Rel ated to Acute bronchitis Rest, fluids, tyleno l or motrin prn fever or discomfort Related to Acute bronchitis Discussed urine drug screen results with pt; advised that I am unable to continue prescribing methylphenidate based on this; she has appt arranged w/[facility] Related to ADD (attention deficit disorder) Finish all abx; keep wound clean/dry daily; watch for increased swelling/warmth/redness - f/up prn Related to Dog bite of arm Medication as prescribed Related to ADD (attention deficit disorder) Establish with mental health at [facility] Related to ADD (attention deficit disorder) Increase fiber and water intake Related to Constipation Rest, fluids, tyleno l or motrin prn fever or discomfort Related to URI (upper respiratory infection) If symptoms persist or worsen, return to office Related to URI (upper respiratory infection) Perform monthly self breast examinations. Related to Well woman exam with routine gynecological exam Quit smoking. Related to Well woman exam with routine gynecological exam Increase activity. Related to We ll woman exam with routine gynecological exam 911 or ER for suicid al/homicidal ideation Related to Dysthymic disorder Take medication(s) as prescribed Related to Dysthymic disorder Walk 30 minutes daily Albuterol less than twice a week Rest, fluids, tyleno l or motrin prn fever or discomfort Related to Bronchitis Stop smoking Related to Tobac co use 911 or ER for suicid al/homicidal ideation Related to Depression Take medication(s) as prescribed Related to Depression If symptoms do not i mprove in 48-72 hrs, may start antibiotics Related to Bronchitis 911 or ER for suicid al/homicidal ideation Related to Anxiety and depression Take medication(s) as prescribed Related to Anxiety and depression Patient instructed o n use of saline sprays. Related to Sinusitis Rest, fluids, tyleno l or motrin prn fever or discomfort Related to Sinusitis If symptoms do not i mprove in 48-72 hrs, may start antibiotics Related to Sinusitis call with any change s in your condition Related to Bronchitis Perform monthly self breast examinations. Related to Other general counseling and advice on contracepti Quit smoking. Related to Other general counseling and advice on contracepti Increase activity. Related to Ot her general counseling and advice on contracepti Gargle warm salt water Related t o Bronchitis Rest, fluids, tyleno l or motrin prn fever or discomfort Related to Bronchitis Take antibiotic until gone Relat ed to Bronchitis If no improvement in symptoms by end of week, call office Related to URI (upper respiratory infection) Patient instructed o n use of saline sprays. Related to URI (upper respiratory infection) Rest, fluids, tyleno l or motrin prn fever or discomfort Related to URI (upper respiratory infection) Perform monthly self breast examinations. Related to Contraceptive management Quit smoking. Related to Contr aceptive management Increase activity. Related to Co ntraceptive management Stop smoking Related to Tobac co Abuse Take medication as prescribed Re lated to Bronchitis Increase rest and fluid intake R elated to Bronchitis Assessments Type Assessment Date No Information Patient Care Teams Name Effective Dates (start - stop) Status Members No Information
--- OUTSIDE RECORDS SUMMARY | 2024-11-02 17:41 | XMS_ITS | Clinical Summary ---
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 Medications Medication Instructions Start Date Stop Date Generic Name NDC Provider AMOXICILLIN 500 MG CAPS Take 1 capsule by mouth three times a day for 5 days 8 amoxicillin [id number] Celia Vivar DMD Medications Administered No information available. Allergies, Adverse Reactions, Alerts No information available. Results No information available. Plan of Care No information available. Procedures No information available. Vital Signs No information available. Immunizations No information available. Advance Directives No information available.
--- OUTSIDE RECORDS SUMMARY | 2024-11-02 17:41 | XMS_ITS | Clinical Summary ---
Author Organization Healthcare Address [address] [place] [address] Care Team Providers Care Administrator Pesticide Name Role Phone Unavailable Primary Care Provider Unavailabl e Social History Tobacco Use Types Packs/Day Years Used Date Smoking Tobacco: Never Assessed Comments Unknown Sex and Gender Information Value Date Recorded Sex Assigned at Not on file Legal Sex Female 10:27 AM EST Gender Identity Not on file Sexual Orientation Not on file Plan of Treatment Health Maintenance Due Date Last Done Comments [facility]-Depression Screening 1990 [facility]-Infant/Child/Adol SDOH Screenings 1990 [facility]-Varicella Vaccines (1 of 2 - 13+ 2-dose series) 2003 HPV Vaccines (1 - 3-dose series) 2005 [facility]- SDOH Screenings 02/29/2008 [facility]-Adult SDOH Screenings 02/29/2008 [facility]-DTaP,Tdap,and Td Vaccine s (1 - Tdap) 2009 [facility]-Hepatitis B Vaccines (1 of 3 - 19+ 3-dose series) 2009 [facility]-Pap Smear 2011 [facility]-Cervical Cancer Screening 02/29/2020 [facility]-HPV/Cotest 02/29/2020 [id number] Vaccine (1 - 20 24-25 season) 2024 [facility]-Influenza Vaccine ([place] n Ended) 2025 [facility]-Zoster Vaccines (1 of 2) 02/29/2040 [facility]-HIB Vaccines Aged Out No longer e ligible based on patient's age to complete this topic [facility]-Hepatitis A Vaccines Aged Out No longer eligible based on patient's age to complete this topic [facility]-IPV Vaccines Aged Out No longer e ligible based on patient's age to complete this topic [facility]-Pneumococcal Vaccine: Pediatrics (0 to 5 Years) and At-Risk Patients (6 to 49 Years) Aged Out No long er eligible based on patient's age to complete this topic [facility]-Rotavirus Vaccines Aged Out No lo nger eligible based on patient's age to complete this topic Insurance * Guarantor: Jamison Kirksaravanan Account Type Relation to Patient Date of Phone Billing Address Personal/Family Self 1990 [address] MEDICAID [facility] [place] MEDICAID
--- NOTE | 2024-11-02 17:48 | PC.NURSE ---
OB adjunct instructor in economics paged.
--- NOTE | 2024-11-02 17:49 | PC.NURSE ---
md on phone with OB
[2024-11-02 17:52] VITALS: BP 120/81; PULSE 72; RESP 18; TEMP 37.3; O2SAT 98; BMI 35.4
[2024-11-02 18:11] VITALS: BP 118/76; PULSE 75; RESP 16; TEMP 37.3; O2SAT 99
--- NOTE | 2024-11-02 19:20 | [facility].EDGENADL ---
Discharge Plan Disposition Patient Disposition: Home, Self-Care Condition: Good Prescriptions Prescriptions: No Action amoxicillin 500 mg tablet 500 mg PO Q8H 14 Days Qty: 42 0RF (DME) pen needle, diabetic [Ultra-Thin II Ins Pen [place]] 29 gauge x 1/2 needle See Rx Instructions .Route Qty: 100 1RF Rx Instructions: As directed Zurzuvae 25 mg capsule 50 mg PO DAILY 14 Days Qty: 28 0RF Rx Instructions: administer with a high fat meal Classic 28 mg iron- 800 mcg tablet 1 tab PO DAILY Qty: 90 2RF amoxicillin 500 mg capsule 500 mg PO Q8H 14 Days Qty: 42 0RF fluoxetine [Prozac] 40 mg capsule 40 mg PO DAILY dextroamphetamine-amphetamine [Adderall] 5 mg Tablet 5 mg PO BID Rx Instructions: administer doses at least 4-6 hours apart enoxaparin 40 mg/0.4 mL syringe 40 mg SQ DAILY oxycodone-acetaminophen 5-325 mg tablet 1 tab PO Q6H PRN (Reason: pain) Qty: 14 0RF polyethylene glycol 3350 17 gram/dose powder 17 g PO DAILY Qty: 510 1RF hydrocortisone 1 % cream 1 applic topical TID PRN (Reason: skin irritation) Qty: 28.4 3RF Referrals Follow up/Referrals: June Mckee DO [Staff Physician, MISSILE TECHNICIAN] - See instructions Tena Goncalves DO [Staff Physician, MISSILE TECHNICIAN] - See instructions Activity Restrictions/Add. Instructions Additional Instructions/Restrictions: You were evaluated in the emergency department today. At this time, your wound looks good. You do have a very small area that is not healed yet, which we covered with Steri-Strips, but I do not think that you should be concerned about any significant injury or infection. I spoke with Dr. Mckee who advised that you can call clinic in the morning to be seen tomorrow afternoon by either Dr. Goncalves and or Dr. Mckee. Return to the emergency department for new or worsening symptoms. Clinical Impressions Clinical Impression: Postoperative external wound disruption Instructions Patient Instructions: DI for Wound Dehiscence Print Language Print Language: Guyanese Discharge ED Provider: Tonya Vinson General Adult HPI General Chief complaint: Skin/Abscess/Foreign Body Stated complaint: 10/23/24 incision is opening Time Seen by Provider: 11/02/24 17:42 Mode of Arrival: Ambulatory Source of Information: Patient Description of Symptoms (Recalled from ER Triage Doc. by RN): pt reports her toddler jumping on to her belly yesterday afternoon. she is approx 10 days post c section. she is concerned her incision may come open. History of Present Illness HPI narrative: This patient is a 34-year-old who is 10 days status post that was uncomplicated presenting to the emergency department for evaluation with concern for possible opening of her lower abdominal incision. She states that yesterday, her toddler jumped on her belly. She notes that otherwise, she is been doing fine postoperatively with no significant pain. She states she has been up doing more than she should. She notes that she feels a little open area on the right side of her incision and is concerned that it could be opening up, which is making her very anxious. No fevers, nausea, vomiting, or other concerns noted Related Data Home Medications ?Medication ?Instructions ?Recorded ?Confirmed dextroamphetamine-amphetamine 5 mg 5 mg PO BID 10/23/24 10/30/24 tablet (Adderall) enoxaparin 40 mg/0.4 mL 40 mg SQ DAILY 10/23/24 10/30/24 subcutaneous syringe fluoxetine 40 mg capsule (Prozac) 40 mg PO DAILY 10/23/24 10/30/24 Previous Rx's ?Medication ?Instructions ?Recorded vits no.126-ferrous fum 1 tab PO DAILY #90 tabs 05/11/23 28 mg iron-folic acid 800 mcg tablet (Classic ) pen needle, diabetic 29 gauge x #100 ea 09/04/24 1/2 (Ultra-Thin II Insulin Pen [place]) zuranolone 25 mg capsule (Zurzuvae) 50 mg (2 x 25 mg) PO DAILY 14 days 10/19/24 #28 caps hydrocortisone 1 % topical cream 1 applic topical TID PRN skin 10/26/24 irritation #28.4 grams oxycodone-acetaminophen 5 mg-325 1 tab PO Q6H PRN pain #14 tabs 10/26/24 mg tablet polyethylene glycol 3350 17 17 g PO DAILY #510 grams 10/26/24 gram/dose oral powder amoxicillin 500 mg capsule 500 mg PO Q8H 14 days #42 caps 10/30/24 amoxicillin 500 mg tablet 500 mg PO Q8H 14 days #42 tabs 10/30/24 Allergies Allergy/AdvReac Type Severity Reaction Status Date / Time No Known Allergies Allergy Verified 10/30/24 12:35 [facility] Disclaimer: The information contained in this section may have been updated after the patient was seen, as this information can be updated by other users. 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 Screening for genetic disease carrier status Tobacco use affecting , antepartum depression Anemia Surgical History S/P No significant past surgical history Family History Other Alcoholism Anemia Asthma Cancer Diabetes FHx: mental illness Substance abuse Thyroid disorder Social History Smoking Status: Never smoker years smoked: 22 smoking status stop date: stopped 6 months ago alcohol intake: never substance use type: denies use, marijuana and amphetamines current occupational status: unemployed Travel in the last 8 weeks?: None do you feel safe at home: Yes victim of physical abuse: No victim of emotional abuse: No victim of sexual abuse: No Have you lived/traveled outside [place] in past 30 days?: No Contact w/someone who lives/traveled outside [place] past 30 days?: No Exposure to someone with infectious disease in past 14 days?: No Do you have a fever (greater than 100.4 F or 38 C)?: No Have you tested positive for COVID-19?: No Exposed to someone with COVID-19 in past 14 days?: No Do you have a sore throat?: No Do you have a cough?: No Do you have any weakness?: No Do you have any diarrhea?: No Are you experiencing any unusual bleeding?: No Do you have any muscle aches/pain?: No Do you have any abdominal pain?: No Are you experiencing loss of taste or smell?: No Other Medical History Have you received the Flu Vaccine for this season: No Have you received the Pneumonia Vaccine: No ROS Obtained: Yes All systems reviewed & no additional complaints except as documented Physical Exam General General appearance: alert and in no apparent distress Head Head exam: atraumatic and normocephalic Eye Eye exam: Present normal appearance, PERRL and EOMI ENT ENT exam: Present normal exam, normal oropharynx, mucous membranes moist and normal external ear exam Neck Neck exam: Present normal inspection, full ROM and trachea midline; Absent tenderness Chest Chest inspection: Present normal inspection and symmetric chest wall rise; Absent tenderness Respiratory Respiratory exam: Present normal lung sounds bilaterally; Absent respiratory distress, wheezes, stridor or accessory muscle use Cardiovascular Cardiovascular exam: Present regular rate and normal rhythm Abdominal Exam Abdominal exam: Present soft and tenderness (Mild appropriate tenderness around her incision, no significant generalized abdominal tenderness); Absent distention, guarding, rebound or rigidity Comment: Lower abdominal incision is clean, dry, and intact. She does have a small area that has not completely healed through the very superficial skin layer. There is no significant dehiscence, no concerns for wound infection on clinical exam. Extremities Exam Extremities exam: Present normal inspection, full ROM and normal capillary refill; Absent tenderness or edema Back Exam Back exam: Present normal inspection and full ROM; Absent tenderness Neurological Exam Neurological exam: Present alert, oriented X3, CN II-XII intact and normal gait; Absent motor sensory deficit Psychiatric Psychiatric exam: Present normal affect and normal mood Skin Skin exam: Present warm and dry Medical Decision Making Medical Records Medical records reviewed: Yes I reviewed the patient's medical records. Screening: Per USPSTF and CDC recommendations, given the prevalence of disease in our region, it is our hospital?s policy to screen for HIV and viral Hepatitis for all patients aged 18 and over and those with ongoing risk factors. Melo Inquiry Pt receiving controlled substance: No Vital Signs: 11/02/24 17:52 11/02/24 18:11 Temperature 99.2 F 99.2 F Temperature Source Oral Oral Pulse Rate 75 Pulse Rate [Left] 72 Respiratory Rate 18 16 Blood Pressure 118/76 Blood Pressure [Left Arm] 120/81 Blood Pressure Mean [Left Arm] 94 Blood Pressure Source Automatic Cuff 02 Sat by Pulse Oximetry 98 Oxygen Delivery Method Room Air Lab Data Lab results reviewed: Yes I reviewed the patient's lab results. Medical Decision Narrative: In summary, this patient is a 34-year-old female presenting to the Emergency Department for evaluation of possible wound dehiscence of her lower abdominal incision after 10 days ago. Differential diagnoses considered include but are not limited to wound dehiscence, wound infection, normal postoperative healing. Ruling out the most morbid conditions drove assessment. On exam, the patient is well-appearing. She has a small area of her lower abdominal incision that has not completely healed through the superficial skin layer, but her incision looks very good. It is clean, dry, intact with no redness, warmth, purulence, or other concerns. She has mild appropriate tenderness but no rebound, guarding, no significant generalized abdominal tenderness. She is afebrile and nontoxic-appearing and has been doing relatively well postoperatively. No significant increase in vaginal bleeding noted. I called and had indirect discussion with Dr. Mckee, and we both agreed that the patient can follow-up in clinic tomorrow for wound recheck. I do not feel that labs or imaging are indicated at this time. Wound was covered with Steri-Strips and she was discharged with instructions for close follow-up. Strict return precautions given Critical Care Critical Care Time Critical Care Time: No
== END 2024-11-02 18:12 | disposition home or self-care (01) ==
PROVIDERS: Emergency Provider Emergency Medicine
DX: T81.31XA Disruption of external operation (surgical) wound, not elsewhere classified, initial encounter (principal); Z98.891 History of uterine scar from previous surgery
CPT/HCPCS: 99282